=== PATIENT | female | born 1995 | race Caucasian/White ===

== ENCOUNTER → 2017-08-15 16:10 | Outpatient (CLI) | payer OTHER, SELFPAY ==
[2017-08-15 17:13] LABS: Absolute Lymphocyte Count 2.65 X10^3/ul (0.83-4.51); Absolute Neutrophil Count 5.3 X10^3/uL (2.0-7.7); Basophil# 0.02 X10^3/uL; Basophil% 0.2 % (0-1); Eosinophil# 0.05 X10^3/uL; Eosinophils% 0.6 % (0-5); Hematocrit 41.3 % (37-47); Hemoglobin 14.2 g/dl (12.0-15.0); Lymphocyte # 2.65 X10^3/ul (4.0); Lymphocyte % 30.1 % (19-41); Mean Corp Hgb Conc 34.4 g/gl (32-36); Mean Corpuscular Hgb 29.2 pg (27.0-32.0); Mean Corpuscular Volume 84.8 fL (81-99); Mean Platelet Vol. 10.7 fl (6.2-12.0); Monocyte# 0.79 X10^3/uL; Neutrophil # 5.29 X10^3/uL (2.7-7.7); Platelet Count 304 K/mm3 (150-450); RBC Distribution Width CV 11.7 % (11.6-14.6); RBC Distribution Width SD 35.8 fl (35.1-43.9); Red Blood Count 4.87 M/mm3 (4.2-5.4); White Blood Count 8.8 K/mm3 (4.4-11.0)
[2017-08-15 17:17] LABS: POSITIVE COUNT NO; POSITIVE DIFFERENTIAL NO; POSITIVE MORPHOLOGY NO
[2017-08-15 19:08] LABS: HIV - WCH Non-Reactive (Nonreactive); Rubella IgG 77.2 IU/mL
[2017-08-17 13:16] LABS: HEPATITIS B SURFACE AG Negative (Negative)
[2017-08-22 01:08] LABS: Rapid Plasmin Reagin (RPR) NONREACTIVE (NONREACTIVE)
== END ==
PROVIDERS: Family Provider Family Medicine; PCP Family Medicine; Visit Provider Obstetrics & Gynecology
DX: Z34.90 Encounter for supervision of normal pregnancy, unspecified, unspecified trimester (principal)
CPT/HCPCS: 36415; 85025; 86592; 86703; 86762; 86850; 86900; 87340

== ENCOUNTER → 2017-08-15 18:41 | Outpatient (CLI) | payer OTHER, SELFPAY ==
[2017-08-15 20:29] LABS: Chlamydia Trachomatis by PCR Negative (Negative); Neisserai gonorrhoeae by PCR Negative (Negative); Probe Check PASS; Sample Adequacy Control PASS; Specimen Processing Control PASS
== END ==
PROVIDERS: Visit Provider Obstetrics & Gynecology
DX: Z34.90 Encounter for supervision of normal pregnancy, unspecified, unspecified trimester (principal)
CPT/HCPCS: 87086; 87491; 87591

== ENCOUNTER → 2017-09-15 15:16 | Outpatient (CLI) | payer OTHER, SELFPAY | PROVIDERS: Family Provider Family Medicine; PCP Family Medicine | DX: Z36.82 Encounter for antenatal screening for nuchal translucency (principal) ==

== ENCOUNTER → 2017-11-06 18:23 | Outpatient (CLI) | payer OTHER, SELFPAY ==
--- NOTE | 2017-11-06 18:27 | US_ITS ---
STUDY: SECOND AND THIRD TRIMESTER OBSTETRICAL ULTRASOUND REASON FOR EXAM: Female, 22 years old. Anatomy scan LMP: TECHNIQUE: Transabdominal PRIOR ULTRASOUND: None. FINDINGS: There is a single intrauterine fetus. The fetus is in a breech presentation. There is demonstrated cardiac activity with a heart rate of 152 bpm. There is a normal amniotic fluid volume. The largest amniotic fluid pocket measures 5.1 cm. The placenta is posterior in location and is not low lying. There are Grade 1 placental changes. The cervix measures 37 mm in length. The adnexal regions are not visualized. BIOMETRY: BPD: 40mm: 18 weeks, 2 days HC: 170mm: 19 weeks, 5 days AC: 138mm: 19 weeks, 2 days FL: 29mm: 19 weeks, 0 days CI: 67 FL/BPD: 72 FL/HC: FL/AC: 21 HC/AC: 1.23 age by current US: 19 weeks, 1 days. ESPERANZA by current US: 10.17.18. Estimated weight: 275 grams, +/- 40 grams, 44 %. Age by LMP: 19 weeks, 1 days. ESPERANZA by LMP: ..18. ANATOMY: Gender: Female Cranium: Normal lateral ventricles. Normal choroid plexus. Normal cerebellum. Normal cisterna magna. Normal face, nose and lips. Chest: Normal 4-chamber heart . Abdomen/Pelvis: Normal diaphragm. Normal stomach. Normal abdominal wall. Normal cord insertion. Normal 3 vessel cord. Normal kidneys. Normal bladder. Spine: Normal cervical spine. Normal thoracic spine. Normal lumbar spine. Normal sacrum. Extremities: Normal bilateral upper extremities. Normal bilateral lower extremities. US/OB Anatomy Scan IMPRESSION: There is a single live intrauterine with a heart rate of 152 bpm. age by current US: 19 weeks, 1 days. ESPERANZA by current US: 10.17.18. Estimated weight: 275 grams, +/- 40 grams, 44 %. Normal anatomic survey. Electronically Signed: Chemo Stahl MD at 21:19 EDT , Service support ,
== END ==
PROVIDERS: Family Provider Family Medicine; PCP Family Medicine; Visit Provider Obstetrics & Gynecology
DX: Z36.89 Encounter for other specified antenatal screening (principal)
CPT/HCPCS: 76805

== ENCOUNTER → 2018-01-06 10:32 | Outpatient (CLI) | payer OTHER, SELFPAY ==
[2018-01-06 11:51] LABS: Absolute Lymphocyte Count 2.19 X10^3/ul (0.83-4.51); Absolute Neutrophil Count 5.8 X10^3/uL (2.0-7.7); Basophil# 0.01 X10^3/uL; Basophil% 0.1 % (0-1); Eosinophil# 0.06 X10^3/uL; Eosinophils% 0.7 % (0-5); Hematocrit 34.9 % (37-47); Hemoglobin 11.3 g/dl (12.0-15.0); Lymphocyte # 2.19 X10^3/ul (4.0); Lymphocyte % 24.8 % (19-41); Mean Corp Hgb Conc 32.4 g/gl (32-36); Mean Corpuscular Hgb 28.8 pg (27.0-32.0); Mean Platelet Vol. 10.4 fl (6.2-12.0); Monocyte# 0.72 X10^3/uL; Monocyte% 8.1 % (0-10); Neutrophil # 5.83 X10^3/uL (2.7-7.7); Platelet Count 229 K/mm3 (150-450); RBC Distribution Width SD 38.2 fl (35.1-43.9); Red Blood Count 3.92 M/mm3 (4.2-5.4); White Blood Count 8.8 K/mm3 (4.4-11.0)
[2018-01-06 11:52] LABS: POSITIVE COUNT NO; POSITIVE DIFFERENTIAL NO; POSITIVE MORPHOLOGY NO
[2018-01-06 12:21] LABS: Glucose Challenge Gest 1H 50g 118 mg/dL (70-140)
== END ==
PROVIDERS: Family Provider Family Medicine; PCP Family Medicine; Visit Provider Obstetrics & Gynecology
DX: Z34.90 Encounter for supervision of normal pregnancy, unspecified, unspecified trimester (principal)
CPT/HCPCS: 36415; 82950; 85025; 86850; 86900

== ENCOUNTER → 2018-03-05 16:19 | Outpatient (CLI) | payer OTHER, SELFPAY ==
[2018-03-05 17:51] LABS: Group B Strep DNA By PCR Negative (Negative); Internal Control PASS; Probe Check PASS; Specimen Processing Control PASS
== END ==
PROVIDERS: Family Provider Family Medicine; PCP Family Medicine; Visit Provider Nurse Practitioner Women's Health
DX: Z34.90 Encounter for supervision of normal pregnancy, unspecified, unspecified trimester (principal)
CPT/HCPCS: 87081; 87653

== ENCOUNTER 2018-04-08 07:05 | Inpatient (IN) | payer OTHER, SELFPAY ==
[2018-04-08 07:13] VITALS: BMI 27.4
[2018-04-08 08:02] LABS: Hematocrit 34.5 % (37-47); Hemoglobin 10.9 g/dl (12.0-15.0); Mean Corp Hgb Conc 31.6 g/gl (32-36); Mean Corpuscular Hgb 26.1 pg (27.0-32.0); Mean Corpuscular Volume 82.7 fL (81-99); Mean Platelet Vol. 11.3 fl (6.2-12.0); Platelet Count 201 K/mm3 (150-450); RBC Distribution Width CV 13.9 % (11.6-14.6); RBC Distribution Width SD 40.2 fl (35.1-43.9); Red Blood Count 4.17 M/mm3 (4.2-5.4); Scan Indicated on CBC? Y/N NO; White Blood Count 11.1 K/mm3 (4.4-11.0)
[2018-04-08] MEDS: Lactated Ringers 1,000 ML 50 ML IV ×4 (08:09→19:06)
[2018-04-08] MEDS: Oxytocin 30 units/NS 500 ml 30 UNITS/500 ML IV.SOLN IV (08:14)
[2018-04-08] MEDS: fentaNYL-bupivacaine (epidural) 100 ML BAG EPIDURAL (12:20)
[2018-04-08] MEDS: 0.9% Normal Saline 1,000 ML 100 ML INTRA-UTER (16:30)
[2018-04-08 21:40] VITALS: O2SAT 97
--- NOTE | 2018-04-08 21:47 | PLAC_PTH ---
PATIENT: JEFE ROMAN LOC: WP U#:[id number] AGE/SX: 22/F ROOM: WP004 RE04/08/[address]: Dr. Sangeetha Floyd MD : 1995 BED: 1 DIS: 04/10/2018 SPEC #: [id number] RECD: 04/09/18 01:37 STATUS: TUTU RENinfa #: [id number] RODRIGO: 04/08/18 21:[address]: Sangeetha Floyd DEPT: SURGICAL PATHOLOGY RECD BY: Jese Richard ENTERED: 04/09/18 11:29 SP TYPE: PLACENTA OTHR DR: Dr. Kisha Stuart, DO Tissues: Placenta, NOS Procedures: Surgery Specimen Level V HEADER OPERATION: Vaginal delivery PRE-OP DIAGNOSIS: Maternal fever TISSUE SUBMITTED: Placenta MICROSCOPIC DIAGNOSIS Placenta: Placental disc - third trimester placenta (455 gm). - Focal areas of peripheral infarction (largest measuring 5 cm in greatest dimension). - Focal acute vasculitis of subamnionic blood vessels. Membranes - pigment laden macrophages consistent with meconium staining. Umbilical cord - three blood vessels and focal mild acute funisitis. SJ:robert 04/13/18 MICROSCOPIC DESCRIPTION Slides are reviewed. GROSS DESCRIPTION SPECIMEN: PLACENTA / CLINICAL INFORMATION: A. Weight: 3.106 kg B. Gestational Age: 41 weeks C. Sex: Female PLACENTAL WEIGHT (POST FIXATION): 455 gm PLACENTAL DIMENSIONS: 19 x 16 x 3 cm PLACENTAL SHAPE: Usual ovoid PLACENTAL WEIGHT FOR GESTATIONAL AGE: Within 10-99th percentile MEMBRANES - Present A. Insertion: Marginal B. Site of rupture from edge: 4 cm from edge of placental disc C. Color of membrane: Mello-greenish, mucoidy consistent with meconium staining D. Abnormalities: None UMBILICAL CORD - Present A. Color: Mello-denson B. Insertion: Central C. Length: 26 cm D. Diameter: 1.2 cm E. Number of vessels: Three F. Abnormalities: None PLACENTAL DISC - Present A. Color of surface: Mello-denson B. surface abnormalities: None C. Maternal cotyledons: Intact with minimal tears D. Attached retro placental clot: No clot E. Cut surface: Dark red and spongy F. Lesions: Sections reveal three mello, indurated peripheral lesions. The smaller two measure 0.5 and 1.5 c in greatest dimension and the largest lesion measures 5 x 3 x 1.5 cm. G. Separate clot: Also received are multiple fragments of blood clot measuring in aggregate 12 x 8 x 2 cm and weighing 58 gm. SECTIONS SUBMITTED: 1. Membrane roll 2. Cord, maternal end, smallest lesion 3. Cord, end 4. Placental disc, and maternal surfaces, intermediate sized lesion, largest lesion 5. Placental disc, and maternal surfaces 6. Placental disc, and maternal surfaces SJ:rg 04/10/18 TC:2 CPT: 26801
[2018-04-08] MEDS: Oxytocin 30 units/NS 500 ml 30 UNITS/500 ML IV.SOLN 334 UNITS IV (21:53)
--- NOTE | 2018-04-08 22:15 | HP.PCM_ITS ---
- Problem List (1) Post-dates Status: Acute (2) Status: Acute Qualifiers: Comment: primigravid (3) screening encounter Status: Acute Comment: Optimal draw: 10/15/17-10/29/17 (4) Rh negative status during Status: Acute Qualifiers: Comment: rhogam prn and at 28 weeks (5) Supervision of normal Status: Acute Qualifiers: Comment: PRR ESPERANZA 04/01/18 kadie Michael History Date of Admission: 04/08/18 Final ESPERANZA: 04/01/18 Gestational age: 41 Weeks and 0 Days History of this : This is a 22 year-old, at 41 weeks gestational age presents IOL postdates. she has had an uncomplicated without any issues. Medical History: Medical History (Last Reviewed 04/06/18 @ 14:06 by Kait Senior) Abnormal Pap smear of cervix R87.619 Anxiety F41.9 Surgical History: Surgical History (Last Reviewed 04/06/18 @ 14:06 by Kait Senior) History of tonsillectomy Z98.890, Z90.89 Allergies No Known Allergies Allergy (Verified 04/06/18 14:05) Home Medications: Home Medications vitamin,calcium,dojshegw-xytu-mlrhe acid tablet 1 tab PO QDAY 08/15/17 breast pump See Dose Instructions .ROUTE .MEDSUPPLY #1 ea 02/25/18 Smoking Status: Never smoker Alcohol: None Number of Fetus(es): 1 Heart Tracins moderate variability reactive no decels cat I History Past Pregnancies: Past Pregnancies primigravid Delivery Date Name GA/Weeks Outcome Route Weight Infant Gender Labor Length Anesthesia Delivery Location Provider FOB Labs: Mom's Labs & Results 04/08/18 04/08/18 07:30 07:30 WBC 11.1 H RBC 4.17 L Hgb 10.9 L Hct 34.5 L MCV 82.7 MCH 26.1 L MCHC 31.6 L RDW 13.9 RDW Differential 40.2 Plt Count 201 MPV 11.3 Blood Type O NEGATIVE Antibody Screen NEGATIVE Course Did the patient receive Yes care? Labs Blood Type: O RH: NEGATIVE RPR/VDRL/Syphilis Nonreactive Rubella status Immune HbSAg Negative Date Done: 08/15/17 Chlamydia Negative Gonorrhea Negative HIV/AIDS Non-Reactive Group B Strep: Negative Current Obstetrical History Gestational Diabetes No Incompetent Cervix No Infertility No IUGR No Macrosomia No Hypertension/Pre-eclampsia No Placenta Previa/Abruption No PTL/PROM No Uterine anomaly No Oligohydramnios No Polyhydramnios No Multiple gestation No Past Medical History Asthma No Diabetes No Hypertension No Heart disease No Mitral valve prolapse No Neurologic/Seizure disorder/ No Migraines Kidney disease No Liver disease No Varicosities No Clotting disorders/Hx of DVT No Thyroid Dysfunction No Other medical diseases No Psychiatric disorders No Major trauma No Abnormal PAP smear No Sleep apnea No Mammogram in the last 2 years No Social History Marital Status: Alleged father Lorenzo Hx Smoking No Smoking Status Never smoker Expected Infant Delivery Method: Spontaneous Vaginal Review of Systems Constitutional: Denies: Fever, Malaise Eyes: Denies: Blurred vision, Vision Change HEENT: Denies: Head Aches, Visual Changes Cardiovascular: Denies: Chest Pain, Palpitations Respiratory: Denies: Cough, Shortness of Breath, Wheezing Gastrointestinal: Denies: Abdominal Pain, Diarrhea, Nausea, Vomiting Genitourinary: Denies: Dysuria, Hematuria Musculoskeletal: Denies: Joint Pain, Muscle pain Skin: Denies: Lesions, Rash Neurological: Denies: Blurred vision, Focal weakness, Headaches Psychiatric: Denies: Anxiety, Depression Endocrine: Denies: Heat/ Cold Intolerance Hematologic/ Lymphatic: Denies: Easy Bruising, Easy Bleeding Physical Exam General: Alert, Cooperative, No apparent distress HEENT: Atraumatic, Normocephalic. Negative for: Thyromegaly, Lymphadenopathy Cardiovascular: Regular rate Lungs: Normal air movement Abdomen: Soft, Non Tender, Gravid Neurological: Deep Tendon Reflexes 2+/4 and Symmetrical, Neuro grossly intact. Negative for: Clonus MAKE READY WORKER: Normal external genitalia. Negative for: Vulvar lesions Estimated gestational size: Appropriate for gestational size Presentation: Cephalic Cervix Dilation (cm): 2.5 Station: -2 Effacement (%): 70 Assessment/Plan All Active Problems (Last Reviewed 04/06/18 @ 14:06 by Kait Senior) Post-dates (Acute) (Acute) screening encounter (Acute) Rh negative status during (Acute) Supervision of normal (Acute) Subchorionic hematoma in first trimester (Resolved) This is a 22 year-old, , at 41 weeks gestational age IOL postdates Patient presents IOL, plan expectant management for with pitocin/AROM when able Pain management: plans epidural. GBS neg. Management of any complications: none I have reviewed the [facility] and made any clinically relevant updates.
--- NOTE | 2018-04-08 22:22 | OP.PCM_ITS ---
- Problem List (1) Post-dates Status: Acute (2) Status: Acute Qualifiers: Comment: primigravid (3) screening encounter Status: Acute Comment: Optimal draw: 10/15/17-10/29/17 (4) Rh negative status during Status: Acute Qualifiers: Comment: rhogam prn and at 28 weeks (5) Supervision of normal Status: Acute Qualifiers: Comment: PRR ESPERANZA 04/01/18 kadie Michael Vaginal Delivery Maternal Presentation: Medically Indicated Induction 22-year-old at 41 weeks presents for induction of labor secondary to postdates Method of Induction: Pitocin Medical Reason for Induction: Post term Amniotic Membrane Rupture Type: Artificial Amniotic Fluid Description: Moderate meconium Final ESPERANZA: 04/01/18 Gestational age: 41 Weeks and 0 Days Date of Procedure: 04/08/18 Pre-Operative Diagnosis: Induction of labor postdates Post-Operative Diagnosis: Same plus isolated maternal fever Surgery/ Procedure Performed: Spontaneous Vaginal Delivery Type of Anesthesia: Epidural Description of Procedure: Patient was induced starting with Pitocin, artificial rupture membranes, and proceeded to complete dilation. Immediately prior to beginning pushing patient had to elevated temperatures of 100.9 half an hour apart and the patient was given a dose of IV ampicillin and gentamicin however upon review of the newest protocol she did not meet the criteria for a true triple I, only a documented isolated maternal fever. This was discussed with poultry culler and the patient and therefore additional antibiotics were not indicated at this time unless there are additional clinical findings present. Patient began pushing and delivered the head in the MEGHAN presentation. The head was delivered atraumatically. The anterior and posterior shoulders delivered without complication followed by the rest of the and the infant was placed on the maternal abdomen. Delayed cord clamping was employed for approximately 60 seconds. Cord was clamped and cut and gentle traction was applied to the cord and the placenta delivered spontaneously immediately following it was noted to be intact with three-vessel cord. The perineum and vagina were inspected and noted to have a second-degree perineal laceration that was repaired in the usual fashion with 3-0 Vicryl repeat. EBL was 100 cc. Patient and tolerated delivery well. Presentation: MEGHAN
[2018-04-08] MEDS: Oxytocin 30 units/NS 500 ml 30 UNITS/500 ML IV.SOLN 167 UNITS IV (22:23)
--- NOTE | 2018-04-08 22:31 | DCINST_ITS ---
Discharge Diet: No Restrictions Discharge Activity: Return to Normal Activity, May not drive while taking narcotic pain medications., May Shower May resume sexual activity in: 4-6 weeks Call your doctor if your incision/area has: Continuous Slow Oozing, Sudden Increased Bleeding, Increased Pain/ Swelling, Increased Redness, Foul Smelling Discharge Additional Instructions: If you experience any of the following, contact your healthcare provider. * Bleeding that soaks a pad every hour for 2 hours * Fever 100.4 or higher * Unrelieved incision or abdominal pain * Swelling, redness, discharge or bleeding from your incision or episiotomy site * Your incision begins to separate * Problems urinating (including inability to urinate or burning while urinating). * Visual changes * Severe headache * Flu-like symptoms * Pain or redness in one of both of your breasts * Pain, warmth, tenderness or swelling in your legs, especially the calf area * Frequent nausea and vomiting * Symptoms of depression or anxiety If you experience any of the following, call 911 or go to the nearest Emergency Room. * Chest pain * Problems breathing * Seizure activity * Partial or complete paralysis of a body part, slurred speech, weakness or drooping of the face, or a sudden inability to walk or hold your balance Allergies/Adverse Reactions: Allergies No Known Allergies Allergy (Verified 04/06/18 14:05) Medications to take at Discharge vitamin,calcium,kajwptuy-gmwq-ffdcb acid tablet 1 tab PO QDAY 08/15/17 breast pump See Dose Instructions .ROUTE .MEDSUPPLY #1 ea 02/25/18 Naproxen [Naprosyn] 250 - 500 mg PO Q8H PRN PRN #30 tablet 04/08/18 The following prescriptions were given: Naproxen [Naprosyn] 250 - 500 mg PO Q8H PRN PRN #30 tablet PRN Reason: MILD PAIN Please Follow Up With: Sangeetha Floyd MD - [phone] When: Call to make an appointment with your doctor in 6 weeks. If you had elevated Blood pressure or 4th degree laceration you will need to be seen in 2 weeks. Primary Care Physician: Kisha Stuart DO [Primary Care Provider] - Test Results: Test results from this visit will be discussed in further detail at your follow- up appointment, if applicable.
--- NOTE | 2018-04-08 22:31 | PCM.DCVAG ---
Discharge Diet: No Restrictions Discharge Activity: Return to Normal Activity, May not drive while taking narcotic pain medications., May Shower May resume sexual activity in: 4-6 weeks Call your doctor if your incision/area has: Continuous Slow Oozing, Sudden Increased Bleeding, Increased Pain/ Swelling, Increased Redness, Foul Smelling Discharge Additional Instructions: If you experience any of the following, contact your healthcare provider. Bleeding that soaks a pad every hour for 2 hours Fever 100.4 or higher Unrelieved incision or abdominal pain Swelling, redness, discharge or bleeding from your incision or episiotomy site Your incision begins to separate Problems urinating (including inability to urinate or burning while urinating). Visual changes Severe headache Flu-like symptoms Pain or redness in one of both of your breasts Pain, warmth, tenderness or swelling in your legs, especially the calf area Frequent nausea and vomiting Symptoms of depression or anxiety If you experience any of the following, call 911 or go to the nearest Emergency Room. Chest pain Problems breathing Seizure activity Partial or complete paralysis of a body part, slurred speech, weakness or drooping of the face, or a sudden inability to walk or hold your balance Allergies/Adverse Reactions: Allergies No Known Allergies Allergy (Verified 04/06/18 14:05) Medications to take at Discharge vitamin,calcium,hmetiudq-inrd-utwpx acid tablet 1 tab PO QDAY 08/15/17 breast pump See Dose Instructions .ROUTE .MEDSUPPLY #1 ea 02/25/18 Naproxen [Naprosyn] 250 - 500 mg PO Q8H PRN PRN #30 tablet 04/08/18 The following prescriptions were given: Naproxen [Naprosyn] 250 - 500 mg PO Q8H PRN PRN #30 tablet PRN Reason: MILD PAIN Please Follow Up With: Sangeetha Floyd MD - [phone] When: Call to make an appointment with your doctor in 6 weeks. If you had elevated Blood pressure or 4th degree laceration you will need to be seen in 2 weeks. Primary Care Physician: Kisha Stuart DO [Primary Care Provider] - Test Results: Test results from this visit will be discussed in further detail at your follow-up appointment, if applicable.
[2018-04-09] MEDS: 0.9% Saline Lock 10 ML Syringe IV (00:16)
[2018-04-09] MEDS: Naproxen 250 MG Tablet 500 MG PO ×4 (00:24→20:34)
[2018-04-09 02:00] VITALS: TEMP 37.1
--- NOTE | 2018-04-09 02:05 | NURSING ---
epidural cath d/c'd with blue tip intact
[2018-04-09 04:36] VITALS: BP 111/64; PULSE 97; RESP 16; TEMP 36.8; O2SAT 96
[2018-04-09 08:30] VITALS: BP 128/57; PULSE 98; RESP 16; TEMP 36.8; O2SAT 97
[2018-04-09] MEDS: Acetaminophen 500 MG Tablet PO (08:34)
[2018-04-09 11:49] VITALS: BP 103/68; PULSE 88; RESP 14; TEMP 37; O2SAT 98
[2018-04-09] MEDS: Senna/Docusate Sodium 1 Tablet PO (13:45)
[2018-04-09 16:30] VITALS: BP 134/96; PULSE 75; RESP 16; TEMP 36.6; O2SAT 98
[2018-04-09 20:40] VITALS: BP 117/86; PULSE 78; RESP 18; TEMP 36.9
--- NOTE | 2018-04-09 21:14 | PCM.PN.OB ---
Patient Problems: Active and Suspected Problems (Last Reviewed 04/06/18 @ 14:06 by Kait Senior) Post-dates (Acute) Subjective: doing well n ocomplaints - Physical Exam General: Alert, Oriented x3 Vital Signs Temp Pulse Resp BP Pulse Ox 98 F 75 16 134/96 H 98 04/09/18 16:30 04/09/18 16:30 04/09/18 16:30 04/09/18 16:30 04/09/18 16:30 Oxygen Delivery Method Room Air Weight: 154 lb 14.4 oz Body Mass Index (BMI) 27.4 Intake and Output for Last 24 Hours 04/07/18 04/08/18 04/09/18 23:59 23:59 23:59 Intake Total 3994 / 3994 454 / 454 Output Total 2200 / 2200 2100 / 2100 Balance 1794 / 1794 -1646 / -1646 Laboratory Tests Past 24 Hrs 04/09/18 00:14 Screen NEGATIVE Baby's Blood Type A POSITIVE Baby's TESHA NEGATIVE Medical Necessity - Tobacco Use Smoking Status: Never smoker Assessment/Plan All Active Problems (Last Reviewed 04/06/18 @ 14:06 by Kait Senior) Post-dates (Acute) (Acute) screening encounter (Acute) Rh negative status during (Acute) Supervision of normal (Acute) Subchorionic hematoma in first trimester (Resolved) s/p PPD # 1 1. routine post delivery care 2. breast feeding- support given 3. rh negative 4. rubella immune
[2018-04-10] MEDS: Acetaminophen 500 MG Tablet PO (01:11)
[2018-04-10] MEDS: Dibucaine 30 GM Tube 1 APPLIC TOPICAL (01:20)
[2018-04-10 01:40] VITALS: BP 117/81; PULSE 78; RESP 16; TEMP 37.1
[2018-04-10 08:23] VITALS: BP 116/78; PULSE 94; RESP 16; TEMP 36.5
[2018-04-10 12:44] VITALS: BP 119/87; PULSE 100; RESP 16; TEMP 36.8; O2SAT 97
[2018-04-13 16:01] LABS: Pathology Specimen OB SEE PATHOLOGY REPORT
== END 2018-04-10 13:05 | disposition home or self-care (01) | DRG 806 ==
PROVIDERS: Admitting Provider Obstetrics & Gynecology; Family Provider Family Medicine; PCP Family Medicine; Visit Provider Obstetrics & Gynecology
DX: O48.0 Post-term pregnancy (principal); O75.2 Pyrexia during labor, not elsewhere classified; Z37.0 Single live birth; O36.0130 Maternal care for anti-D [Rh] antibodies, third trimester, not applicable or unspecified; O77.0 Labor and delivery complicated by meconium in amniotic fluid; O70.1 Second degree perineal laceration during delivery; O43.893 Other placental disorders, third trimester; Z3A.41 41 weeks gestation of pregnancy
CPT/HCPCS: 59050; 85027; 85461; 86850; 86900; 88307; 90384; 99218; J7030; J7120; 90686; A4216; G0378; J2790

== ENCOUNTER → 2018-04-17 14:17 | Outpatient (CLI) | payer OTHER, SELFPAY | PROVIDERS: Family Provider Family Medicine; PCP Family Medicine; Visit Provider Family Medicine | DX: R30.0 Dysuria (principal) | CPT/HCPCS: 87086; 87088 ==

== ENCOUNTER 2018-06-04 11:00 | Outpatient (RCR) | payer OTHER, SELFPAY ==
--- NOTE | 2017-09-11 18:54 | MASS.EVAL_ITS ---
Massage Therapy Evaluation: Initial Evaluation Date: 09/11/2017 SUBJECTIVE: Leyda is a 22 year old female who was referred to the [facility] facility for a massotherapy evaluation by Dr. Kisha Stuart with the diagnosis of low back pain and thoracic pain. Leyda presents today with the symptoms of low back pain with muscle tension in her low back and hips. She also complains of tension and pain in her neck shoulders and middle back. She reports having a medical history of neck and back pain. She is currently approximately ten weeks . She reports having minimal limitations during her daily activities currently. OBJECTIVE: Upon observation Leyda has poor posture with her head forward and shoulders forward from the neutral position in sitting and standing. After examination and palpation I found Leyda to have very high muscle tension with tenderness and myofascial restrictions in her sub occipitals, trapezius, rhomboids, scalenes, thoracic paraspinals and pectoral muscles. Her hips and lumbar region were also tight. The first treatment consisted of a one hour massage to her full body with myofascial release, muscle stripping, trigger point compression techniques, and cervical manual traction. ASSESSMENT: I feel that Leyda is a good candidate for massotherapy at this time. She had a favorable response to the first treatment with reduction in her muscle aches, pain and tension. She also had improvement in her cervical flexibility. PLAN: The plan of care was reviewed with the patient. The patient is to be seen on as needed basis for a total of ten sessions with the recommendation of once every four weeks for a one hour treatment.
--- NOTE | 2017-11-20 11:30 | DT_ITS ---
This patient was seen during an EMR downtime November 17, 2017 - November 24, 2017. This patient may have a combination of paper and electronic documentation or all paper documentation. All documentation is viewable within the e-chart portion of [facility] for each patient visit.
--- NOTE | 2018-06-06 15:09 | MASS.DISCH ---
Massage Therapy Discharge Summary: Discharge Date: 06/06/2018 Leyda was seen for a massotherapy evaluation on 09/11/2017 with the diagnosis of LBP and thoracic spine pain. She was treated with ten sessions of massage therapy consisting of deep pressure soft tissue techniques, myofascial release and trigger point compression to her cervical, thoracic, lower back, upper extremities and hips. Leyda responded well to the therapy by reporting decreased tension and pain throughout her head, neck, shoulders, lower back and hips. Her goals for therapy were met throughout the treatment sessions. At this time this patient is being discharged from our care at [facility] facility.
== END 2018-06-04 19:00 | disposition home or self-care (01) ==
LOC: MASS 11:00
PROVIDERS: Family Provider Family Medicine; PCP Family Medicine; Visit Provider Family Medicine
DX: M54.6 Pain in thoracic spine (principal); M54.5 Low back pain
CPT/HCPCS: 97124

== ENCOUNTER 2018-12-10 08:15 | Outpatient (RCR) | payer OTHER, SELFPAY ==
[2018-05-25 11:46] VITALS: BMI 24.0
--- NOTE | 2018-07-08 10:40 | MASS.EVAL ---
Massage Therapy Evaluation: Initial Evaluation Date: 07/07/2018 SUBJECTIVE: Leyda is a 23 year old female who was referred to the [facility] for a massotherapy evaluation by Dr. Stuart with the diagnosis of thoracic back pain. Leyda presents today with the symptoms of tension and pain in her neck and shoulders. She also complains of neck and back stiffness with pain intermittently in her low back and bilateral hip tension. Leyda reports that she delivered her baby three months ago and is adjusting to caring for her very well. She reports having improved symptoms with continuation of exercise and stretching. OBJECTIVE: Upon observation Leyda has slight head forward in sitting and standing postures. After examination and palpation I found Leyda to have high muscle tension with tenderness and myofascial restrictions in her sub occipitals, levator scapulae, trapezius, rhomboids, scalenes, and thoracic paraspinals. Her QL?s, lumbar paraspinals, glute medius and minimus all were very tight with fascial restrictions, tender points and trigger points. The first treatment consisted of a one hour massage to her upper body with myofascial release, muscle stripping, trigger point compression techniques, and cervical manual traction. ASSESSMENT: I feel that Leyda is a good candidate for massotherapy at this time. She had a favorable response to the first treatment with reduction in her muscle aches, pain and tension. She also had improvement in her cervical flexibility and low back flexibility. PLAN: The plan of care was reviewed with the patient. The patient is to be seen on an as needed basis for a total of ten sessions with the recommendation of once every month for a one hour treatment.
--- NOTE | 2019-06-03 13:36 | MASS.DISCH ---
Massage Therapy Discharge Summary: Discharge Date: 06/03/2019 Leyda was seen for a massotherapy evaluation on 07/07/2018 with the diagnosis of thoracic back pain. She was treated with six sessions of massage therapy consisting of moderate to deep pressure soft tissue techniques, myofascial release and trigger point compression to her cervical, thoracic, lower back and upper extremities. Leyda responded well to the therapy by reporting decreased tension and pain throughout her head, neck, shoulders, lower back and hips. Her goals for therapy were met throughout the treatment sessions. At this time this patient is being discharged from our care at [facility] facility.
== END 2018-12-10 19:00 | disposition home or self-care (01) ==
LOC: MASS 08:15
PROVIDERS: Family Provider Family Medicine; PCP Family Medicine; Referring Provider Family Medicine; Visit Provider Family Medicine
DX: M54.6 Pain in thoracic spine (principal)
CPT/HCPCS: 97124

== ENCOUNTER → 2019-05-27 12:33 | Outpatient (CLI) | payer SELFPAY ==
[2019-05-27 12:22] VITALS: BMI 24.0
[2019-05-27 13:26] LABS: Absolute Lymphocyte Count 1.65 X10^3/uL (0.83-4.51); Absolute Neutrophil Count 3.4 X10^3/uL (2.0-7.7); Basophil# 0.02 X10^3/uL; Basophil% 0.3 % (0-1); Eosinophil# 0.02 X10^3/uL; Eosinophils% 0.3 % (0-5); Hematocrit 45.4 % (37-47); Hemoglobin 14.9 g/dL (12.0-15.0); Lymphocyte # 1.65 X10^3/ul (4.0); Lymphocyte % 28.2 % (19-41); Mean Corp Hgb Conc 32.8 g/dL (32-36); Mean Corpuscular Hgb 28.4 pg (27.0-32.0); Mean Corpuscular Volume 86.5 fL (81-99); Mean Platelet Vol. 10.3 fl (6.2-12.0); Monocyte# 0.78 X10^3/uL; Monocyte% 13.3 % (0-10); NRBC Flagged by Analyzer 0 % (0-5); Neutrophil # 3.36 X10^3/uL (2.7-7.7); Neutrophil % 57.6 % (47-70); Platelet Count 253 K/mm3 (150-450); RBC Distribution Width CV 11.9 % (11.6-14.6); Red Blood Count 5.25 M/mm3 (4.2-5.4); White Blood Count 5.9 K/mm3 (4.4-11.0)
[2019-05-27 14:40] LABS: HIV - WCH Non-Reactive (Nonreactive); Hepatitis B Surface Antigen Non-Reactive (Nonreactive); Rubella IgG 69.3 IU/mL
[2019-05-27 21:27] LABS: Chlamydia Trachomatis by PCR Negative (Negative); Neisserai gonorrhoeae by PCR Negative (Negative); Probe Check PASS; Sample Adequacy Control PASS; Specimen Processing Control PASS
[2019-06-03 02:17] LABS: Rapid Plasmin Reagin (RPR) NONREACTIVE (NONREACTIVE)
== END ==
PROVIDERS: Family Provider Family Medicine; PCP Family Medicine; Referring Provider Obstetrics & Gynecology; Visit Provider Obstetrics & Gynecology
DX: Z34.90 Encounter for supervision of normal pregnancy, unspecified, unspecified trimester (principal); Z12.4 Encounter for screening for malignant neoplasm of cervix
CPT/HCPCS: 36415; 85025; 86592; 86703; 86762; 86850; 86900; 86901; 87086; 87088; 87340; 87491; 87591

== ENCOUNTER → 2019-07-12 | Outpatient (CLI) | payer SELFPAY ==
[2019-07-12 13:31] VITALS: BMI 24.0
[2019-07-12 14:59] LABS: Amphetamine Urine VISTA NEGATIVE (<1000 ng/mL); Barbiturate Urine VISTA NEGATIVE (< 200 ng/mL); Benzodiazepine Urine VISTA NEGATIVE (< 200 ng/mL); Cocaine Urine VISTA NEGATIVE (< 300 ng/mL); Ecstacy Urine VISTA NEGATIVE (< 500 ng/mL); Methadone Urine VISTA NEGATIVE (< 300 ng/mL); PCP Urine VISTA NEGATIVE (< 25 ng/mL); THC Urine VISTA NEGATIVE (< 50 ng/mL); Vista UDS pH Range 5
== END | disposition home or self-care (01) ==
LOC: LABSPEC 14:18
PROVIDERS: PCP Family Medicine; Visit Provider Nurse Practitioner Women's Health
DX: Z34.90 Encounter for supervision of normal pregnancy, unspecified, unspecified trimester (principal)
CPT/HCPCS: 80307

== ENCOUNTER → 2019-08-23 07:57 | Outpatient (CLI) | payer SELFPAY ==
[2019-08-09 13:20] VITALS: BMI 24.0
--- NOTE | 2019-08-23 08:06 | US_ITS ---
STUDY: SECOND AND THIRD TRIMESTER OBSTETRICAL ULTRASOUND REASON FOR EXAM: Female, 24 years old ANATOMY LMP: 04/11/2019 TECHNIQUE: Transabdominal TECHNICAL QUALITY: Adequate. PRIOR ULTRASOUND: None. FINDINGS: There is a single intrauterine fetus. The fetus is in a transverse lie with the head on the maternal right side. There is demonstrated cardiac activity with a heart rate of 140 bpm. There is a normal amniotic fluid volume. The largest amniotic fluid pocket measures 6.9 cm. The amniotic fluid index (TOM) is cm. The placenta is anterior in location and is not low lying. There are Grade 0 placental changes. The cervix measures 4.1 cm in length. The bilateral adnexal regions are normal. BIOMETRY: BPD: 4.0 cm: 18 weeks, 0 days HC: 15.7 cm: 18 weeks, 4 days AC: 13.2 cm: 18 weeks, 5 days FL: 2.7 cm: weeks, 1 days CI: 71.81 FL/BPD: 67.18 FL/HC: 17.10 FL/AC: 20.28 HC/AC: 1.19 age by current US: 18 weeks, 3 days. ESPERANZA by current US: 01/21/2020. Estimated weight: 242 grams, +/- 36 grams, %. Age by LMP: 19 weeks, 1 days. ESPERANZA by LMP: . ANATOMY: Gender: Male Cranium: Normal lateral ventricles. Normal choroid plexus. Normal cerebellum. Normal cisterna magna. Normal face, nose and lips. Chest: Normal 4-chamber heart. Abdomen/Pelvis: Normal diaphragm. Normal stomach. Normal abdominal wall. Normal cord insertion. Normal 3 vessel cord. Normal kidneys. Normal bladder. Spine: Normal cervical spine. Normal thoracic spine. Normal lumbar spine. Normal sacrum. Extremities: Normal bilateral upper extremities. Normal bilateral lower extremities. US/OB Anatomy Scan IMPRESSION: Living intrauterine of 18 weeks 3 days as described above. Electronically Signed: Jese Ovalle MD at 16:42 EDT Tel , Service support ,
== END ==
PROVIDERS: PCP Family Medicine; Referring Provider Obstetrics & Gynecology; Visit Provider Obstetrics & Gynecology
DX: Z34.90 Encounter for supervision of normal pregnancy, unspecified, unspecified trimester (principal)
CPT/HCPCS: 76805

== ENCOUNTER → 2019-11-03 12:44 | Outpatient (CLI) | payer SELFPAY ==
[2019-11-03 11:49] VITALS: BMI 24.0
[2019-11-03 13:40] LABS: Absolute Lymphocyte Count 2.17 X10^3/uL (0.83-4.51); Absolute Neutrophil Count 6.4 X10^3/uL (2.0-7.7); Basophil# 0.03 X10^3/uL; Basophil% 0.3 % (0-1); Eosinophil# 0.05 X10^3/uL; Eosinophils% 0.5 % (0-5); Hemoglobin 11.1 g/dL (12.0-15.0); Lymphocyte # 2.17 X10^3/ul (4.0); Lymphocyte % 22.9 % (19-41); Mean Corp Hgb Conc 30.8 g/dL (32-36); Mean Corpuscular Hgb 27.1 pg (27.0-32.0); Mean Corpuscular Volume 87.8 fL (81-99); Mean Platelet Vol. 10.4 fl (6.2-12.0); Monocyte# 0.73 X10^3/uL; Monocyte% 7.7 % (0-10); NRBC Flagged by Analyzer 0 % (0-5); Neutrophil # 6.42 X10^3/uL (2.7-7.7); Platelet Count 237 K/mm3 (150-450); RBC Distribution Width CV 12.1 % (11.6-14.6); RBC Distribution Width SD 38.7 fl (35.1-43.9); White Blood Count 9.5 K/mm3 (4.4-11.0)
[2019-11-03 14:05] LABS: Glucose Challenge Gest 1H 50g 101 mg/dL (70-140)
[2019-11-03 14:41] LABS: Hepatitis C Antibody Non-Reactive (Nonreactive)
== END ==
PROVIDERS: PCP Family Medicine; Referring Provider Obstetrics & Gynecology; Visit Provider Obstetrics & Gynecology
DX: Z34.90 Encounter for supervision of normal pregnancy, unspecified, unspecified trimester (principal); Z3A.29 29 weeks gestation of pregnancy
CPT/HCPCS: 36415; 82950; 85025; 86803; 86850; 86900; 86901

== ENCOUNTER → 2019-12-27 | Outpatient (CLI) | payer SELFPAY ==
[2019-12-27 13:22] VITALS: BMI 26.1
== END | disposition home or self-care (01) ==
LOC: LABSPEC 16:58
PROVIDERS: PCP Family Medicine; Referring Provider Obstetrics & Gynecology; Visit Provider Obstetrics & Gynecology
DX: Z34.93 Encounter for supervision of normal pregnancy, unspecified, third trimester (principal)
CPT/HCPCS: 87081

== ENCOUNTER → 2020-01-03 14:06 | Outpatient (CLI) | payer SELFPAY ==
[2020-01-03 13:34] VITALS: BMI 26.1
--- NOTE | 2020-01-03 14:06 | US_ITS ---
STUDY: SECOND AND THIRD TRIMESTER OBSTETRICAL ULTRASOUND-Limited REASON FOR EXAM: Female, 24 years old growth- small for dates LMP: 04/11/2019 TECHNIQUE: Transabdominal TECHNICAL QUALITY: Adequate. PRIOR ULTRASOUND: None. FINDINGS: There is a single intrauterine fetus. The fetus is in a cephalic presentation. There is demonstrated cardiac activity with a heart rate of 153 bpm. There is a normal amniotic fluid volume. The largest amniotic fluid pocket measures 4.2 cm. The amniotic fluid index (TOM) is 10.8 cm. The placenta is anterior in location and is not low lying. There are Grade 2 placental changes. The cervix measures 2.9 cm in length. The adnexal regions are not visualized. BIOMETRY: BPD: 9.0 cm: 36 weeks, 4 days HC: 32.6 cm: 36 weeks, 6 days AC: 32.1 cm: 36 weeks, 0 days FL: 7.2 cm: 37 weeks, 0 days age by current US: 36 weeks, 2 days. ESPERANZA by current US: 01/29/2020. Estimated weight: 2948 grams, +/- 436 grams, 21 %. age by prior US: 37 weeks, 3 days. ESPERANZA by prior US: 01/21/2020. Age by LMP: 38 weeks, 1 days. ESPERANZA by LMP: 02/02. US/OB Limited With Biometrics IMPRESSION: Single live intrauterine at 36 weeks, 2 days by current ultrasound ESPERANZA of 01/29/2020. Heart rate of 153 bpm. No suspicious sonographic findings. However, the ESPERANZA on today''s study is 8 days later than on the previous study. Electronically Signed: Kelvin Herrera MD at 8:43 EDT , Service support ,
== END ==
PROVIDERS: PCP Family Medicine; Referring Provider Obstetrics & Gynecology; Visit Provider Obstetrics & Gynecology
DX: Z34.90 Encounter for supervision of normal pregnancy, unspecified, unspecified trimester (principal)
CPT/HCPCS: 76816

== ENCOUNTER → 2020-01-17 11:38 | Outpatient (CLI) | payer SELFPAY ==
[2020-01-17 09:48] VITALS: BMI 26.1
== END ==
PROVIDERS: PCP Family Medicine; Referring Provider Obstetrics & Gynecology; Visit Provider Obstetrics & Gynecology
DX: Z20.828 Contact with and (suspected) exposure to other viral communicable diseases (principal)
CPT/HCPCS: 87635; 94799; U0003

== ENCOUNTER 2020-01-19 04:40 | Inpatient (IN) | payer SELFPAY ==
[2019-07-12 13:31] VITALS: BMI 24.0
[2020-01-17 09:48] VITALS: BMI 26.1
[2020-01-19] VITALS (45 sets, daily range): BP systolic 91–195; BP diastolic 55–122; PULSE 81–130; RESP 16; TEMP 36.2–37.3; O2SAT 98–100; BMI 26.9
[2020-01-19] MEDS: Lactated Ringers 500 ML 999 ML IV ×2 (05:24→07:14)
[2020-01-19 05:36] LABS: Absolute Lymphocyte Count 3.26 X10^3/uL (0.83-4.51); Absolute Neutrophil Count 6.2 X10^3/uL (2.0-7.7); Basophil# 0.02 X10^3/uL; Basophil% 0.2 % (0-1); Eosinophil# 0.04 X10^3/uL; Eosinophils% 0.4 % (0-5); Hematocrit 34.6 % (37-47); Hemoglobin 10.9 g/dL (12.0-15.0); Lymphocyte # 3.26 X10^3/ul (4.0); Mean Corp Hgb Conc 31.5 g/dL (32-36); Mean Corpuscular Hgb 25.3 pg (27.0-32.0); Mean Corpuscular Volume 80.5 fL (81-99); Mean Platelet Vol. 10.7 fl (6.2-12.0); Monocyte# 0.96 X10^3/uL; Monocyte% 9.1 % (0-10); NRBC Flagged by Analyzer 0 % (0-5); Neutrophil # 6.18 X10^3/uL (2.7-7.7); Neutrophil % 58.7 % (47-70); Platelet Count 216 K/mm3 (150-450); RBC Distribution Width CV 14.7 % (11.6-14.6); RBC Distribution Width SD 41.8 fl (35.1-43.9); White Blood Count 10.5 K/mm3 (4.4-11.0)
[2020-01-19] MEDS: Lactated Ringers 1,000 ML 200 ML IV ×2 (05:55→11:32)
--- NOTE | 2020-01-19 06:11 | HP.PCM_ITS ---
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 Date Name GA/Weeks Outcome Route Bth Weight Gen Labor Lgth Anesthesia Del Locatn Provider FOB 04/08/18 Camdyn 41 live - full term NS VD Female epidural [facility] HPI est ob 40w: Details: JEFE ROMAN is a 24 year old G2, P1 at 40 weeks 3 days presents in active labor 4 cm dilated. Patient has been having regular contractions since early this morning. She has had an uncomplicated without any issues. She denies any loss of fluid or vaginal bleeding she admits good movement. OB Visit ESPERANZA Calculator Estimated Delivery Date Method Current WG Current Estimate 01/16/20 LMP (Certain) 40w 2d Expected Delivery Route/Plan Labor Preferences- labor support person: Michael pain management options preferred: epidural cut cord/dad catch: yes : yes PP control planned: pill progestin discussed possible routes of delivery and associated risks: discussed possible delivery modalities and possible indications for each including R/B/A of , VAVD, and CS. questions answered. special requests: none Specific Issue/Plans flu vaccine: given tdap vaccine: given rhogam: given LARC form signed: yes movement and labor precautions reviewed. Problem list reviewed and updated with the most current plan of care details and appropriate orders placed. Relevant counseling for the gestational age provided. Continue routine care and follow up unless otherwise noted in visit notes/problem list details Initial Weight: 123 lb Date EGA Weight BP Urine Prot Glucose FHR FuHt Pres Dilation Effaced St Visit Note 06/14/19 9w 1d 123 lb 2 oz (+2 oz) 107/63 Negative Negative 150 SM- no vb crmaping, subchorionic hemorrhage resolving 07/12/19 13w 1d 127 lb 4 oz (+4 lb 4 oz) 100/60 Negative Negative 162 MH-No Vb, LOF. Taking unisom for nausea, helpful. 08/09/19 17w 1d 131 lb (+8 lb) 94/62 Negative Negative 154 MH-nausea improved. No VB, LOF. Placed MFM US order 09/06/19 21w 1d 133 lb 6 oz (+10 lb 6 oz) 100/64 Negative Negative 145 SM- no vb lof good fm no regular ctx 11/03/19 29w 3d 142 lb (+19 lb) 102/80 Negative Negative 140 30 Sm- no vb lof good fm no regular ctx cbc gct rhogam tdap 11/16/19 31w 2d 145 lb 6 oz (+22 lb 6 oz) 104/70 Negative Negative 148 32 MH-NO VB, LOF. Good FM 11/29/19 33w 1d 147 lb 6 oz (+24 lb 6 oz) 108/78 Negative Negative 140 33 Transverse SM- no vb lof good fm n oregular ctx 12/13/19 35w 1d 151 lb 2 oz (+28 lb 2 oz) 102/80 Negative Negative 140 35 Cephalic SM- no vb lof good fm no regular ctx 12/27/19 37w 1d 149 lb (+26 lb) 96/60 Negative Negative 140 37 Cephalic 1.5 40 -3 Sm- no vb lof good fm no regular ctx 01/03/20 38w 1d 153 lb (+30 lb) 108/60 Negative Negative 140 34 Cephalic 1.5 40 -2 SM- no vb lof good fm no regular ctx FH low recommend US today, 01/10/20 39w 1d 155 lb (+32 lb) 118/82 Negative Negative 140 37 Cephalic 1.5 SM- reviewed nl growth scan. no vb lof good fm no regular ctx 01/17/20 40w 1d 124/86 Negative Negative 140 39 Cephalic 2 40 -2 SM- no vb lof good fm no regular ctx. discussed IOL possibly once cervix favorable ACOG First Trimester First Trimester: Desire for , Alcohol, Tobacco Cessation, Illicit/Recreational Drug/Substance Use, Intimate Partner Violence, Barriers to care, Unstable Housing, Communication Barriers, Environmental/Work Hazards, Anticipated Course of Care, Toxoplasmosis Precations, Use of Any medications, Sexual activity, Exercise, Dental Care, Sauna/Hot tub use, Seat Belt use, Childbirth classes/Hospital facilities, , Travel, Indications for US and Screening for Aneuploidy Second Trimester Second Trimester: Signs and Symptoms of Labor, Selecting a care provider, Reproductive Life Planning, Care Planning, Tobacco Cessation, Depression/Anxiety and Intimate Partner Violence Diagnostics Diagnostics Diagnostics Blood Type O NEGATIVE 11/03/19 Antibody Screen NEGATIVE 11/03/19 Glucose 1 Hr 50 gm 101 mg/dL (70-140) 11/03/19 Hgb 11.1 g/dL (12.0-15.0) L 11/03/19 Hct 36.0 % (37-47) L 11/03/19 Details: HIV: Urine Culture: Sequential Screen: NIPT Screen: ROS Const Reports system reviewed and no additional complaints, except as docu Card Reports system reviewed and no additional complaints, except as docu Resp Reports system reviewed and no additional complaints, except as docu GI Reports system reviewed and no additional complaints, except as docu, Reports nausea Reports system reviewed and no additional complaints, except as docu Musc Reports system reviewed and no additional complaints, except as docu Exam Const General: cooperative, healthy appearing, comfortable, anxious HENMT Head: normal to inspection Nose: external nose normal Face and sinus: normal facial exam Neck Neck: normal visual inspection, full ROM, no lymphadenopathy Thyroid: thyroid normal Chest Chest palpation & inspection: normal inspection of the chest Resp Effort & Inspection: normal respiratory effort GI Inspection: normal to inspection Palpation: soft, other (gravid uterus) Other: infant vertex and appropriate size for gestational age Other: Cervical Exam: Extrem General: pedal edema Results POC Urinalysis 2 Dip (Clinic) Office Urine Glucose Negative Last Edit by Rachel Iverson on 01/17/20 09:5 2 Office Urine Protein Negative Last Edit by Rachel Iverson on 01/17/20 09:5 2 Assessment & Plan Problems 1. Rh negative status during O26.899; Z67.91 rhogam given at 28 weeks 2. Supervision of normal Z34. PRR ESPERANZA 01/16/20 boy PC [place] Michael 3. Z34.90 carrier, ntd, nipt declined; normal anatomy Patient presents IAL, plan expectant management for , Pitocin/AROM if needed. Pain management: Plans epidural. GBS negative. Management of any complications: None I have reviewed the [facility] and made any clinically relevant updates. Orders Orders: POC Urinalysis 2 Dip (Clinic) 01/17/20 Coding Level of Care Code OB Routine Diagnoses Rh negative status during O26.899; Z67.91 Supervision of normal Z34 [id number]
[2020-01-19] MEDS: fentaNYL-bupivacaine (epidural) 100 ML BAG EPIDURAL (06:51)
[2020-01-19] MEDS: Oxytocin 30 units/NS 500 ml 30 UNITS/500 ML IV.SOLN IV (10:45)
[2020-01-19] MEDS: Oxytocin 30 units/NS 500 ml 30 UNITS/500 ML IV.SOLN 334 UNITS IV (13:05)
--- NOTE | 2020-01-19 14:15 | OP.PCM_ITS ---
Problem List (1) Status: Acute Qualifiers: Comment: carrier, ntd, nipt declined; normal anatomy (2) Rh negative status during Status: Acute Qualifiers: Comment: rhogam given at 28 weeks (3) Supervision of normal Status: Acute Qualifiers: Comment: PRR ESPERANZA 01/16/20 boy PC [place] Michael (4) Active labor at term Status: Acute Vaginal Delivery Maternal Presentation: Active Labor A 24-year-old G2, P1 at 40 weeks 3 days presents in active labor Amniotic Membrane Rupture Type: Artificial Amniotic Fluid Description: Clear Final ESPERANZA: 01/16/20 Gestational age: 40 Weeks and 3 Days Date of Procedure: 01/19/20 Pre-Operative Diagnosis: ial Post-Operative Diagnosis: same Surgery/ Procedure Performed: Spontaneous Vaginal Delivery Type of Anesthesia: Epidural, Local with 1% lidocaine Description of Procedure: Patient began pushing and delivered the head in the LUIS CARLOS presentation. The head was delivered atraumatically [and a loose nuchal cord ?1 was identified and easily reduced over the infant's head]. The anterior and posterior shoulders delivered without complication followed by the rest of the infant and the infant was placed on the maternal abdomen. Delayed cord clamping was employed for approximately 60 seconds. Cord was clamped and cut and gentle traction was applied to the cord and the placenta delivered spontaneously immediately following it was noted to be intact with three-vessel cord. The perineum and vagina were inspected and noted to have a second-degree perineal laceration that was repaired in the usual fashion with 3-0 Vicryl Rapide and an additional fig [id number] stitch at the introitus for hemostasis. EBL was 200 cc. Patient and infant tolerated delivery well. Presentation: LUIS CARLOS Placental Delivery Description: Spontaneous Placenta Disposition: [facility] Cord Vessel Description: 3 Vessels Nuchal Cord Compression: With compression Cord Entanglement: Around neck x 1, loose Estimated Blood Loss: 200 Infant A gender: Male (1 minute): 8 (5 minute): 9 Episiotomy Description: None Laceration: Perineal Extension/lac, 2nd degree Medications given after delivery: IV Pitocin Complications: None Multi Select Codes - Urinary/Genital Urinary/Genital CPT Codes: 86856 [facility]aginal [facility]
[2020-01-19] MEDS: Dibucaine 30 GM Tube 1 APPLIC TOPICAL (17:27)
[2020-01-19] MEDS: Senna/Docusate Sodium 1 Tablet PO (17:39)
[2020-01-19] MEDS: Naproxen 250 MG Tablet 500 MG PO (19:48)
[2020-01-20] VITALS (9 sets, daily range): BP systolic 91–113; BP diastolic 54–78; PULSE 87–94; RESP 16–18; TEMP 36.4–37.3; O2SAT 99
[2020-01-20] MEDS: Acetaminophen 500 MG Tablet 1000 MG PO ×2 (00:40→11:49)
[2020-01-20] MEDS: Naproxen 250 MG Tablet 500 MG PO (05:38)
--- NOTE | 2020-01-20 08:04 | PCM.PN.OB ---
Patient Problems: Active and Suspected Problems (Last Reviewed 01/17/20 @ 09:48 by Rachel Iverson) Active labor at term (Acute) Subjective: Doing well, no complaints.Pain controlled. Denies CP, SOB, N,V. Ambulating well, tolerating po. Lochia moderate, going well. - Physical Exam Vitals/I&O's: Vital Signs Temp Pulse Resp BP Pulse Ox 99.1 F 88 16 92/54 L 99 01/20/20 03:14 01/20/20 03:14 01/20/20 03:14 01/20/20 03:14 01/20/20 03:14 Oxygen Delivery Method Room Air Weight: 152 lb 6.4 oz Body Mass Index (BMI) 26.9 Intake and Output for Last 24 Hours 01/18/20 01/19/20 01/20/20 23:59 23:59 23:59 Intake Total 2816.80 / 2816.80 Output Total 2550 / 2550 Balance 266.80 / 266.80 General: Alert, Oriented x3 Abdomen: Soft, Non Tender, Non-Distended, - - FF below U Psych/Mental Status: Normal Affect, Appropriate Laboratory Results 01/19/20 17:30: Screen NEGATIVE, Baby's Blood Type O POSITIVE, Baby's TESHA NEGATIVE Current Medications Acetaminophen (Tylenol) 1,000 mg PO Q8H PRN PRN PRN Reason: Pain Score 1-3/10 Last Admin: 01/20/20 00:40 Dose: 1,000 mg Documented by: Bisacodyl (Dulcolax) 10 mg RECTAL UD PRN PRN Reason: If no BM Dibucaine (Dibucaine) 1 applic TOPICAL TID PRN PRN; Protocol PRN Reason: Discomfort Last Admin: 01/19/20 17:27 Dose: 1 tube Documented by: Famotidine (Pepcid) 20 mg PO DAILY JAMIA Hydrocortisone (Hytone) 1 applic TOPICAL TID PRN PRN; Protocol PRN Reason: Discomfort Methylergonovine Maleate (Methergine) 0.2 mg IM X1 PRN PRN Reason: Excess bleeding/uterine atony Naproxen (Naprosyn) 500 mg PO Q8H PRN PRN PRN Reason: Pain Score 1-3/10 Last Admin: 01/20/20 05:38 Dose: 500 mg Documented by: Ondansetron HCl (Zofran) 4 mg IV Q4H PRN PRN PRN Reason: Nausea Oxycodone HCl (Oxyir) 5 - 10 mg PO Q4H PRN PRN PRN Reason: Pain Score 4-10/10 Multivit/Folic Acid/Iron (Prenatabs Fa) 1 tablet PO DAILY@1200 JAMIA Senna/Docusate Sodium (Senokot-S, Dominique-Colace) 1 - 2 tablet PO DAILY PRN PRN PRN Reason: Constipation Last Admin: 01/19/20 17:39 Dose: 2 tablet Documented by: Simethicone (Mylicon) 80 mg PO PCHS PRN PRN Reason: Indigestion/Stomach pain Sodium Chloride () 5 - 15 ml IV UD PRN PRN Reason: SALINE FLUSH Medical Necessity - Tobacco Use Smoking Status: Never smoker Assessment/Plan All Active Problems (Last Reviewed 01/17/20 @ 09:48 by Rachel Iverson) Active labor at term (Acute) (Acute) Supervision of normal (Acute) Rh negative status during (Acute) Subchorionic hematoma in first trimester (Resolved) Uterine size-date discrepancy, third trimester (Resolved) s/p PPD # 1 1. routine post delivery care 2. breast feeding- support given 3. rh negative 4. rubella immune 5. home today
--- NOTE | 2020-01-20 08:05 | DCINST_ITS ---
Additional Instructions: If you experience any of the following, contact your healthcare provider. * Bleeding that soaks a pad every hour for 2 hours * Fever 100.4 or higher * Unrelieved incision or abdominal pain * Swelling, redness, discharge or bleeding from your incision or episiotomy site * Your incision begins to separate * Problems urinating (including inability to urinate or burning while urinating). * Visual changes * Severe headache * Flu-like symptoms * Pain or redness in one of both of your breasts * Pain, warmth, tenderness or swelling in your legs, especially the calf area * Frequent nausea and vomiting * Symptoms of depression or anxiety If you experience any of the following, call 911 or go to the nearest Emergency Room. * Chest pain * Problems breathing * Seizure activity * Partial or complete paralysis of a body part, slurred speech, weakness or drooping of the face, or a sudden inability to walk or hold your balance Allergies/Adverse Reactions: Allergies No Known Allergies Allergy (Verified 01/19/20 03:18) Medications to take at Discharge prenat.vits,sergio,[id number] 1 tab PO QDAY 08/15/17 Doxylamine Succinate [Unisom] 25 mg PO QHS 01/19/20 Famotidine [Pepcid] 20 mg PO DAILY 01/19/20 Primary Care Physician: Kisha Stuart DO [Primary Care Provider] - Test Results: Test results from this visit will be discussed in further detail at your follow- up appointment, if applicable.
--- NOTE | 2020-01-20 08:05 | PCM.DCVAG ---
Additional Instructions: If you experience any of the following, contact your healthcare provider. Bleeding that soaks a pad every hour for 2 hours Fever 100.4 or higher Unrelieved incision or abdominal pain Swelling, redness, discharge or bleeding from your incision or episiotomy site Your incision begins to separate Problems urinating (including inability to urinate or burning while urinating). Visual changes Severe headache Flu-like symptoms Pain or redness in one of both of your breasts Pain, warmth, tenderness or swelling in your legs, especially the calf area Frequent nausea and vomiting Symptoms of depression or anxiety If you experience any of the following, call 911 or go to the nearest Emergency Room. Chest pain Problems breathing Seizure activity Partial or complete paralysis of a body part, slurred speech, weakness or drooping of the face, or a sudden inability to walk or hold your balance Allergies/Adverse Reactions: Allergies No Known Allergies Allergy (Verified 01/19/20 03:18) Medications to take at Discharge prenat.vits,sergio,[id number] 1 tab PO QDAY 08/15/17 Doxylamine Succinate [Unisom] 25 mg PO QHS 01/19/20 Famotidine [Pepcid] 20 mg PO DAILY 01/19/20 Primary Care Physician: Kisha Stuart DO [Primary Care Provider] - Test Results: Test results from this visit will be discussed in further detail at your follow-up appointment, if applicable.
[2020-01-20] MEDS: Famotidine 20 MG Tablet PO (11:42)
[2020-01-21 14:52] VITALS: BP 138/95; PULSE 125
[2020-01-21 14:53] VITALS: PULSE 126; O2SAT 96
[2020-01-21 17:51] VITALS: BP 156/80; PULSE 80
== END 2020-01-20 15:30 | disposition home or self-care (01) | DRG 806 ==
LOC: WPOUT 04:45 → WP 04:45
PROVIDERS: Admitting Provider Obstetrics & Gynecology; PCP Family Medicine; Visit Provider Obstetrics & Gynecology
DX: O69.1XX0 Labor and delivery complicated by cord around neck, with compression, not applicable or unspecified (principal); O36.0130 Maternal care for anti-D [Rh] antibodies, third trimester, not applicable or unspecified; O70.1 Second degree perineal laceration during delivery; Z37.0 Single live birth; Z3A.40 40 weeks gestation of pregnancy
CPT/HCPCS: 59050; 85025; 85461; 86850; 86900; 86901; 90384; 99218; J7120; G0378; J2790

== ENCOUNTER → 2020-03-02 | Outpatient (CLI) | payer SELFPAY ==
[2020-03-02 11:29] VITALS: BMI 26.9
[2020-03-08 20:51] LABS: HPV Reflexed? NOT INDICATED
== END | disposition home or self-care (01) ==
PROVIDERS: PCP Family Medicine; Referring Provider Obstetrics & Gynecology; Visit Provider Obstetrics & Gynecology
DX: Z12.4 Encounter for screening for malignant neoplasm of cervix (principal)
CPT/HCPCS: 88175; G0145

== ENCOUNTER → 2020-09-27 15:59 | Outpatient (CLI) | payer SELFPAY ==
[2020-09-27 14:47] VITALS: BMI 22.3
[2020-09-27 17:21] LABS: Basophil# 0.03 X10^3/uL; Basophil% 0.3 % (0-1); Eosinophil# 0.05 X10^3/uL; Eosinophils% 0.5 % (0-5); Hematocrit 43.2 % (37-47); Hemoglobin 13.5 g/dL (12.0-15.0); Lymphocyte % 27.6 % (19-41); Mean Corp Hgb Conc 31.3 g/dL (32-36); Mean Corpuscular Hgb 26.9 pg (27.0-32.0); Mean Corpuscular Volume 86.1 fL (81-99); Mean Platelet Vol. 10.6 fl (6.2-12.0); Monocyte# 0.73 X10^3/uL; Monocyte% 6.7 % (0-10); NRBC Flagged by Analyzer 0 % (0-5); Neutrophil # 7.02 X10^3/uL (2.7-7.7); Neutrophil % 64.7 % (47-70); Platelet Count 302 K/mm3 (150-450); RBC Distribution Width CV 12.7 % (11.6-14.6); RBC Distribution Width SD 39.2 fl (35.1-43.9); Red Blood Count 5.02 M/mm3 (4.2-5.4); White Blood Count 10.9 K/mm3 (4.4-11.0)
[2020-09-27 17:39] LABS: Amphetamine Urine VISTA NEGATIVE (<1000 ng/mL); Barbiturate Urine VISTA NEGATIVE (< 200 ng/mL); Benzodiazepine Urine VISTA NEGATIVE (< 200 ng/mL); Cocaine Urine VISTA NEGATIVE (< 300 ng/mL); Ecstacy Urine VISTA NEGATIVE (< 500 ng/mL); Methadone Urine VISTA NEGATIVE (< 300 ng/mL); PCP Urine VISTA NEGATIVE (< 25 ng/mL); THC Urine VISTA NEGATIVE (< 50 ng/mL); Vista UDS pH Range 5
[2020-09-28 08:52] LABS: HIV - WCH Non-Reactive (Nonreactive); Hepatitis B Surface Antigen Non-Reactive (Nonreactive); Hepatitis C Antibody Non-Reactive (Nonreactive); Rubella IgG Reactive (Nonreactive); Syphilis Antibodies Non-reactive
[2020-09-30 03:07] LABS: Chlamydia By Nucleic Acid AMP Negative (Negative)
[2020-09-30 19:51] LABS: Gonococcus By Nucleic Acid AMP Negative (Negative)
== END ==
PROVIDERS: PCP Family Medicine; Referring Provider Obstetrics & Gynecology; Visit Provider Obstetrics & Gynecology
DX: Z34.80 Encounter for supervision of other normal pregnancy, unspecified trimester (principal)
CPT/HCPCS: 36415; 80307; 85025; 86703; 86762; 86780; 86803; 86850; 86900; 86901; 87086; 87088; 87340; 87491; 87591

== ENCOUNTER → 2020-12-11 08:20 | Outpatient (CLI) | payer SELFPAY ==
[2020-10-23 13:53] VITALS: BMI 22.4
[2020-11-20 13:16] VITALS: BMI 22.4
--- NOTE | 2020-12-11 08:22 | US_ITS ---
STUDY: SECOND AND THIRD TRIMESTER OBSTETRICAL ULTRASOUND REASON FOR EXAM: Female, 25 years old anatomy LMP: 07/29/2020. TECHNIQUE: Transabdominal and Transvaginal TECHNICAL QUALITY: Adequate. PRIOR ULTRASOUND: None. FINDINGS: There is a single intrauterine fetus. The fetus is in a cephalic presentation. There is demonstrated cardiac activity with a heart rate of 153 bpm. There is a normal amniotic fluid volume. The largest amniotic fluid pocket measures 7.3 cm x 4.4 cm. The amniotic fluid index (TOM) is within normal limits. The placenta is anterior and low lying but not previa in location. The tip of the placenta is at 2 cm from the cervical os. There are Grade 0 placental changes. The cervix measures 4.2 cm in length. The bilateral adnexal regions are normal. BIOMETRY: BPD: 4.17 cm: 18 weeks, 4 days HC: 16.7 cm: 19 weeks, 2 days AC: 14.09 cm: 19 weeks, 3 days FL: 2.88 cm: 18 weeks, 5 days CI: 68.4 FL/BPD: 69 FL/HC: FL/AC: 20.4 HC/AC: 1.19 age by current US: 19 weeks, 2 days. ESPERANZA by current US: 05/05/2021. Estimated weight: 276 grams, +/- 41 grams, 35.7 %. Age by LMP: 19 weeks, 2 days. ESPERANZA by LMP: 05/05/2021. ANATOMY: Gender: Male Cranium: Normal lateral ventricles. Normal choroid plexus. Normal cerebellum. Normal cisterna magna. Normal face, nose and lips. Chest: Normal 4-chamber heart. Abdomen/Pelvis: Normal diaphragm. Normal stomach. Normal abdominal wall. Normal cord insertion. Normal 3 vessel cord. Normal kidneys. Normal bladder. Spine: Normal cervical spine. Normal thoracic spine. Normal lumbar spine. Normal sacrum. Extremities: Normal bilateral upper extremities. Normal bilateral lower extremities. IMPRESSION: Single live uterine gestation with mean gestational age of 19 weeks and 2 days. Electronically Signed: Satya Motta MD at 15:46 EDT , Service support , STUDY: FIRST TRIMESTER OBSTETRICAL ULTRASOUND REASON FOR EXAM: Female, 25 years old . Placental location. TECHNIQUE: Transvaginal TECHNICAL QUALITY: Adequate. PRIOR ULTRASOUND: None. FINDINGS: The placenta is anterior in location and low lying. The tip of the placenta is at 2 cm from the cervical os. US/OB Anatomy Scan IMPRESSION: Low-lying anterior placenta. Electronically Signed: Satya Motta MD at 15:47 EDT , Service support ,
== END ==
PROVIDERS: PCP Family Medicine; Referring Provider Obstetrics & Gynecology; Visit Provider Obstetrics & Gynecology
DX: Z34.80 Encounter for supervision of other normal pregnancy, unspecified trimester (principal)
CPT/HCPCS: 76805; 76830

== ENCOUNTER → 2021-02-12 13:47 | Outpatient (CLI) | payer SELFPAY ==
[2021-02-12 14:42] LABS: Absolute Lymphocyte Count 2.09 X10^3/uL (0.83-4.51); Absolute Neutrophil Count 6.6 X10^3/uL (2.0-7.7); Basophil# 0.02 X10^3/uL; Basophil% 0.2 % (0-1); Eosinophil# 0.04 X10^3/uL; Eosinophils% 0.4 % (0-5); Hemoglobin 9.8 g/dL (12.0-15.0); Lymphocyte # 2.09 X10^3/ul (0.83-4.51); Lymphocyte % 22.3 % (19-41); Mean Corp Hgb Conc 30.6 g/dL (32-36); Mean Corpuscular Hgb 26.3 pg (27.0-32.0); Mean Corpuscular Volume 85.8 fL (81-99); Mean Platelet Vol. 10.3 fl (6.2-12.0); Monocyte# 0.59 X10^3/uL; Monocyte% 6.3 % (0-10); NRBC Flagged by Analyzer 0 % (0-5); Neutrophil % 70.3 % (47-70); Platelet Count 204 K/mm3 (150-450); RBC Distribution Width CV 12.6 % (11.6-14.6); Red Blood Count 3.73 M/mm3 (4.2-5.4); White Blood Count 9.4 K/mm3 (4.4-11.0)
[2021-02-12 15:25] LABS: Glucose Challenge Gest 1H 50g 146 mg/dL (70-140)
== END ==
PROVIDERS: PCP Family Medicine; Referring Provider Nurse Practitioner Women's Health; Visit Provider Nurse Practitioner Women's Health
DX: Z34.92 Encounter for supervision of normal pregnancy, unspecified, second trimester (principal); Z3A.20 20 weeks gestation of pregnancy
CPT/HCPCS: 36415; 82950; 85025; 86850; 86900; 86901

== ENCOUNTER → 2021-02-16 06:48 | Outpatient (CLI) | payer SELFPAY ==
[2021-02-16 07:20] LABS: Glucose GTT-Gestation. Fasting 80 mg/dL (<105)
[2021-02-16 08:51] LABS: Glucose GTT-Gestational 1 Hr 143 mg/dL (<190)
[2021-02-16 10:19] LABS: Glucose GTT-Gestational 2 Hr 96 mg/dL (<165)
[2021-02-16 10:58] LABS: Glucose GTT-Gestational 3 Hr 42 L (<145)
== END ==
PROVIDERS: PCP Family Medicine; Referring Provider Obstetrics & Gynecology; Visit Provider Obstetrics & Gynecology
DX: Z13.1 Encounter for screening for diabetes mellitus (principal)
CPT/HCPCS: 36415; 82951; 82952

== ENCOUNTER → 2021-03-12 14:00 | Outpatient (CLI) | payer SELFPAY ==
[2021-03-12 14:50] LABS: Absolute Lymphocyte Count 2.07 X10^3/uL (0.83-4.51); Absolute Neutrophil Count 5.4 X10^3/uL (2.0-7.7); Basophil# 0.02 X10^3/uL; Basophil% 0.2 % (0-1); Eosinophil# 0.03 X10^3/uL; Eosinophils% 0.4 % (0-5); Hematocrit 33.9 % (37-47); Hemoglobin 10.4 g/dL (12.0-15.0); Lymphocyte # 2.07 X10^3/ul (0.83-4.51); Lymphocyte % 25.1 % (19-41); Mean Corp Hgb Conc 30.7 g/dL (32-36); Mean Corpuscular Hgb 26.3 pg (27.0-32.0); Mean Corpuscular Volume 85.6 fL (81-99); Monocyte# 0.67 X10^3/uL; Monocyte% 8.1 % (0-10); NRBC Flagged by Analyzer 0 % (0-5); Neutrophil # 5.42 X10^3/uL (2.7-7.7); Neutrophil % 65.6 % (47-70); Platelet Count 184 K/mm3 (150-450); RBC Distribution Width CV 14.9 % (11.6-14.6); RBC Distribution Width SD 45.5 fl (35.1-43.9); Red Blood Count 3.96 M/mm3 (4.2-5.4); White Blood Count 8.3 K/mm3 (4.4-11.0)
== END ==
PROVIDERS: PCP Family Medicine; Referring Provider Obstetrics & Gynecology; Visit Provider Obstetrics & Gynecology
DX: O99.019 Anemia complicating pregnancy, unspecified trimester (principal); D64.9 Anemia, unspecified; Z3A.00 Weeks of gestation of pregnancy not specified
CPT/HCPCS: 36415; 85025

== ENCOUNTER → 2021-04-09 | Outpatient (CLI) | payer SELFPAY | END | disposition home or self-care (01) | LOC: LABSPEC 15:49 | PROVIDERS: PCP Family Medicine; Visit Provider Obstetrics & Gynecology | DX: Z34.80 Encounter for supervision of other normal pregnancy, unspecified trimester (principal) | CPT/HCPCS: 87081 ==

== ENCOUNTER 2021-05-02 04:30 | Inpatient (IN) | payer SELFPAY ==
[2021-05-02] VITALS (28 sets, daily range): BP systolic 103–128; BP diastolic 57–91; PULSE 76–104; RESP 16–20; TEMP 36.3–36.9; O2SAT 96–99; BMI 27.6
[2021-05-02 04:55] LABS: Absolute Lymphocyte Count 2.87 X10^3/uL (0.83-4.51); Absolute Neutrophil Count 4.1 X10^3/uL (2.0-7.7); Basophil# 0.02 X10^3/uL; Basophil% 0.3 % (0-1); Eosinophil# 0.05 X10^3/uL; Eosinophils% 0.6 % (0-5); Hematocrit 42.3 % (37-47); Hemoglobin 13.5 g/dL (12.0-15.0); Lymphocyte # 2.87 X10^3/ul (0.83-4.51); Lymphocyte % 36.3 % (19-41); Mean Corp Hgb Conc 31.9 g/dL (32-36); Mean Corpuscular Hgb 27.7 pg (27.0-32.0); Mean Corpuscular Volume 86.7 fL (81-99); Mean Platelet Vol. 11.2 fl (6.2-12.0); Monocyte# 0.83 X10^3/uL; Monocyte% 10.5 % (0-10); NRBC Flagged by Analyzer 0 % (0-5); Neutrophil # 4.08 X10^3/uL (2.7-7.7); Neutrophil % 51.7 % (47-70); Platelet Count 181 K/mm3 (150-450); RBC Distribution Width CV 17.3 % (11.6-14.6); RBC Distribution Width SD 55.2 fl (35.1-43.9); Red Blood Count 4.88 M/mm3 (4.2-5.4); White Blood Count 7.9 K/mm3 (4.4-11.0)
--- NOTE | 2021-05-02 05:27 | HP.PCM.OB_ITS ---
HPI - General General Date of Admission: 05/02/21 HPI Narrative JEFE ROMAN, is a 25 F who presents in active labor. She denies any bleeding or loss of fluid admits good movement. She is having regular contractions increasing over the last 2 hours. Maternal Data Information ESPERANZA Calculator Estimated Delivery Date Method Current WG Current Estimate 05/05/21 Ultrasound #1 39w 4d Other Estimates 04/23/21 LMP (Certain) 41w 2d PFSH PFS Medical History Abnormal glucose affecting Anxiety History of tetanus, diphtheria, and acellular pertussis booster vaccination (Tdap) Home Medications prenat.vits,sergio,ako-gaze-kjvxx 1 tab PO QDAY 08/15/17 [History Last Taken 05/01/21] doxylamine succinate 25 mg tablet 25 mg PO QHS PRN 09/19/20 [History Last Taken 05/01/21] pyridoxine (vitamin B6) 100 mg tablet 100 mg PO DAILY 09/19/20 [History Last Taken 05/01/21] Allergy/AdvReac Type Severity Reaction Status Date / Time No Known Allergies Allergy Verified 05/02/21 04:48 Surgical History History of tonsillectomy Social History adopted: No household members: family housing: house number of children: 2 current occupation: homemaker Smoking Status: Never smoker alcohol intake: never substance use type: does not use caffeine: Yes frequency: 1-2 times per week seatbelt use: always do you feel safe at home: Yes additional social history: Michael- Pharmacist History 3 Elective abortions Hx Para 2 Spontaneous abortions Hx # Term Pregnancies Ectopic pregnancies Hx # Pregnancies Multiple births # of living children 2 Past Pregnancies Del. Date Name GA/Weeks Outcome Route Bth Weight Gen Labor Lgth Anes t hesia Del Locatn Provider FOB 04/08/18 Camdyn 41 live - full term 7lbs 2oz Female 14 hours epidural [facility] ABEBA Rodriguez 01/19/20 Chao 40 live - full term 7lbs 2oz Male 5 hours e pidural [facility] Mariel Rodriguez Delivery Date: 04/08/18 isolated maternal fever; moderate meconium; BP dropped and could not feel hands or neck after getting Epidural. Kait Senior Delivery Date: 01/19/20 Perineal Extension/lac, 2nd degree; cord around neck x1- loose; BP dropped and could not feel hands or neck after getting Epidural. Kait Senior Visit Details Expected Delivery Route/Plan Labor Preferences- CB/BF classes: no labor support person: Michael labor intervention preferences: [] pain management options preferred: limited intervention cut cord/dad catch: yes : yes PP control planned: discussed, planning vasectomy discussed possible routes of delivery and associated risks: [] special requests: [] Plans covid status: pos in past and she was symptomatic, counseled regarding risk of covid in vs vaccination and declined vaccination flu vaccine: given tdap vaccine: given rhogam: given 02/12 LARC form signed: yes movement and labor precautions reviewed. Problem list reviewed and updated with the most current plan of care details and appropriate orders placed. Relevant counseling for the gestational age provided. Continue routine care and follow up unless otherwise noted in visit notes/problem list details OB Flowsheet Initial Weight: 125 lb Date -?-?-?-?-?-?-?-?-?-?-?-?- EGA Weight BP Urine Prot -?-?-?-?-?-?-?-?-?-?-?-?- Glucose FHR FuHt Pres Dilation -?-?-?-?-?-?-?-?-?-?-?-?- Effaced St Visit Note 09/27/20 -?-?-?-?-?-?-?-?-?-?-?-?- 8w 4d 126 lb (+16 oz) 110/80 -?-?-?-?-?-?-?-?-?-?-?-?- 170 -?-?-?-?-?-?-?-?-?-?-?-?- GP - CRL 17mm co nsistent with LMP. 10/23/20 -?-?-?-?-?-?-?-?-?-?-?-?- 12w 2d 127 lb (+2 lb) 104/82 Negative -?-?-?-?-?-?-?-?-?-?-?-?- Negative 153 -?-?-?-?-?-?-?-?-?-?-?-?- GP - no cramping or bleeding. PRR. Anatomy ordered. 11/20/20 -?-?-?-?-?-?-?-?-?-?-?-?- 16w 2d 130 lb 2 oz (+5 lb 2 oz) 118/60 Negative -?-?-?-?-?-?-?-?-?-?-?-?- Negative 164 -?-?-?-?-?-?-?-?-?-?-?-?- MH-No VB, LOF An atomy US scheduled. Doing well 12/20/20 -?-?-?-?-?-?-?-?-?-?-?-?- 20w 4d 133 lb 8 oz (+8 lb 8 oz) 92/70 Negative -?-?-?-?-?-?-?-?-?-?-?-?- Negative 145 -?-?-?-?-?-?-?-?-?-?-?-?- GP - no ctx, LOF , VB, DFM. Anatomy normal. It's a boy! 01/15/21 -?-?-?-?-?-?-?-?-?-?-?-?- 24w 2d 140 lb (+15 lb) 100/70 -?-?-?-?-?-?-?-?-?-?-?-?- 145 24 -?-?-?-?-?-?-?-?-?-?-?-?- SM- no vb lof cr amping. 02/12/21 -?-?-?-?-?-?-?-?-?-?-?-?- 28w 2d 144 lb 4 oz (+19 lb 4 oz) 102/60 Negative -?-?-?-?-?-?-?-?-?--?-?-?- Negative 141 28 -?-?-?-?-?-?-?-?-?-?-?-?- MH-No VB, LOF. G ood Fm. 28 wk labs. tdap, rhogam, larc 02/26/21 -?-?-?-?-?-?-?-?-?-?-?-?- 30w 2d 147 lb 8 oz (+22 lb 8 oz) 110/78 Negative -?-?-?-?-?-?-?-?-?-?-?-?- Negative 130 30 -?-?-?-?-?-?-?-?-?-?-?-?- GP - no LOF, VB, DFM, ctx. Denies complaints. 03/12/21 -?-?-?-?-?-?-?-?-?-?-?-?- 32w 2d 148 lb 8 oz (+23 lb 8 oz) 100/72 Negative -?-?-?-?--?-?-?-?-?-?-?-?- Negative 130 33 -?-?-?-?-?-?-?-?-?-?-?-?- SM- no vb lof go od fm no reuglar ctx 03/26/21 -?-?-?-?-?-?-?-?-?-?-?-?- 34w 2d 100/78 Negative -?-?-?-?-?-?-?-?-?-?-?-?- Negative 145 34 -?-?-?-?-?-?-?-?-?-?-?-?- SM- no vb lof go od fm no reular ctx 04/09/21 -?-?-?-?-?-?-?-?-?-?-?-?- 36w 2d 154 lb 6 oz (+29 lb 6 oz) 108/80 Negative -?-?-?-?-?-?-?-?-?-?-?-?- Negative 140 36 -?-?-?-?-?-?-?-?-?--?-?-?- Sm- no vb lof go od fm no reuglar ctx gbs done 04/16/21 -?-?-?-?-?-?-?-?-?-?-?-?- 37w 2d 157 lb (+32 lb) 122/84 Negative -?-?-?-?-?-?-?-?-?-?-?-?- Negative 140 37 -?-?-?-?-?-?-?-?-?-?-?-?- SM- no vb lof go od fm no regular ctx 04/23/21 -?-?-?-?-?-?-?-?-?-?-?-?- 38w 2d 157 lb (+32 lb) 116/80 -?-?-?-?-?-?-?-?-?-?-?-?- 140 38 Cephalic 1 -?-?-?-?-?-?-?-?-?-?-?-?- SM- no vb lof go od fm no reg ctx 04/30/21 -?-?-?-?-?-?-?-?-?-?-?-?- 39w 2d 158 lb 2 oz (+33 lb 2 oz) 110/86 Negative -?-?-?-?-?-?-?-?-?-?-?-?- Negative 120 39 3 -?-?-?-?-?-?-?-?-?-?-?-?- 60 -2 SM- no vb lof some dec fm, no regular ctx 05/02/21 -?-?-?-?-?-?-?-?-?-?-?-?- 39w 4d 155 lb 12.8 oz (+30 lb 12.8 oz) 128/91 -?-?-?-?-?-?-?-?-?-?-?-?- -?-?-?-?-?-?-?-?-?-?-?-?- NST FHR Rate Baby A Baseline: 130 Variability:: Moderate Accelerations:: 15 x 15 Decelerations:: None NST Reactive:: Yes FHR Category:: Category I Uterine Activity:: q3-5 ROS Constitutional Constitutional: Reports systems reviewed and no addt'l complaints, except as documented ENT HEENT: Reports systems reviewed and no addt'l complaints, except as documented Cardiovascular Cardiovascular: Reports systems reviewed and no addt'l complaints, except as documented Respiratory/Chest Respiratory/Chest: Reports systems reviewed and no addt'l complaints, except as documented Gastrointestinal Gastrointestinal: Reports systems reviewed and no addt'l complaints, except as documented and nausea; Denies abdominal pain Genitourinary Genitourinary: Reports systems reviewed and no addt'l complaints, except as documented, contractions Details: present and frequency (regular ) and movement Details: present Musculoskeletal Musculoskeletal: Reports systems reviewed and no addt'l complaints, except as documented Integumentary Integumentary: Reports as per HPI Neurologic Neurologic: Reports systems reviewed and no addt'l complaints, except as documented Endocrine Endocrinology: Reports systems reviewed and no addt'l complaints, except as documented Vital Signs Vital Signs Vital Signs: 05/02/21 04:24 05/02/21 05:17 Pulse Rate 87 104 H Blood Pressure 128/91 H BP Systolic 128 BP Diastolic 91 Pulse Ox 98 Weight Weight: 155 lb 12.8 oz Body Mass Index (BMI) 27.6 Physical Exam Const alert, oriented x3 and healthy appearing Constitutional Narrative: uncomfortable with contractions HEENT normocephalic and moist oral mucous membranes Head and Scalp: atraumatic Neck full ROM, no lymphadenopathy, supple and thyroid normal General: trachea midline Thyroid: thyroid normal Lymph Lymphatic: no lymphadenopathy noted Chest inspection of chest normal Resp normal respiratory effort Cardio regular rate GI normal to inspection, nondistended, normoactive bowel sounds, soft to palpation and non-tender Inspection: gravid external exam normal Bimanual Exam - Vag & Uterus: uterus non-tender Manual OB Exam: estimated gestational size appropriate, presentation cephalic, dilated 6, effaced 70 and station -1 Extremity normal to inspection General Extremity: Negative for edema Skin no rashes or lesions noted Neuro deep tendon reflexes 2+ bilaterally Motor Exam: strength 5/5 throughout and clonus absent Psych mental status grossly normal Labs Labs Labs: Blood Type O NEGATIVE Antibody Screen NEGATIVE Hct 42.3 % (37-47) Hgb 13.5 g/dL (12.0-15.0) Obstetrics US Syphilis Total Ab Non-reactive VZV IgG Antibody 587 index (Immune >165) Rubella IgG Antibody Reactive (Nonreactive) Hep Bs Antigen Non-Reactive (Nonreactive) Neisseria gonorrhoeae DNA (EMY) Negative (Negative) HIV 1&2 Antibody Non-Reactive (Nonreactive) C.trachomatis DNA (PCR) Negative (Negative) Glucose 1 Hr 50 gm 146 mg/dL (70-140) H Group B Strep DNA Negative (Negative) Rhogam given: Yes Miscellaneous Test Assessment & Plan (1) Abnormal glucose affecting : COMMENT: Normal 3 hr GTT (2) Anemia affecting , antepartum: COMMENT: Start Fe and recheck CBC 4 weeks (3) Anxiety: COMMENT: 02/12 stable (4) Short interval between pregnancies affecting , antepartum: COMMENT: previous 01/2020 (5) Rh negative state in antepartum period: COMMENT: O neg; Rhogam PRN and at 28 weeks-Rhogam given 09/27/20, 02/12/21 (6) Supervision of other normal : COMMENT: PRR ESPERANZA: 04/20/21 Boy PC: Chao Hamilton Spouse: Michael (7) : QUALIFIERS: Weeks of gestation: 39 weeks Qualified Code(s): Z3A.39 - 39 weeks gestation of COMMENT: declines genetic, carrier and AFP. Anatomy US normal, GBS neg (8) Active labor at term: COMMENT: admit IAL, exp management, labor support. pit PRN
[2021-05-02] MEDS: Oxytocin 30 units/NS 500 ml 30 UNITS/500 ML IV.SOLN 334 UNITS IV (06:11)
[2021-05-02] MEDS: Naproxen 500 MG Tablet PO ×2 (07:39→15:50)
[2021-05-02] MEDS: 0.9% Saline Lock 10 ML Syringe IV (08:45)
[2021-05-02] MEDS: Senna/Docusate Sodium 1 Tablet PO (09:28)
[2021-05-02] MEDS: Acetaminophen 500 MG Tablet 1000 MG PO ×2 (12:03→21:19)
--- NOTE | 2021-05-02 13:47 | NURSING ---
Nursing instruction reviewed students nurse charting and agree. This is used for educational and learning purposes
[2021-05-03] VITALS (7 sets, daily range): BP systolic 103–121; BP diastolic 70–78; PULSE 77–112; RESP 16–20; TEMP 36.5–36.9
[2021-05-03] MEDS: Acetaminophen 500 MG Tablet 1000 MG PO (05:45)
[2021-05-03] MEDS: Naproxen 500 MG Tablet PO (09:29)
[2021-05-03] MEDS: Senna/Docusate Sodium 1 Tablet PO (09:29)
--- NOTE | 2021-05-03 12:06 | OP.PCM_ITS ---
Assessment & Plan (1) Active labor at term: COMMENT: admit IAL, exp management, labor support. pit PRN (2) Abnormal glucose affecting : COMMENT: Normal 3 hr GTT (3) Anemia affecting , antepartum: COMMENT: Start Fe and recheck CBC 4 weeks (4) Anxiety: COMMENT: 02/12 stable (5) Short interval between pregnancies affecting , antepartum: COMMENT: previous 01/2020 (6) Rh negative state in antepartum period: COMMENT: O neg; Rhogam PRN and at 28 weeks-Rhogam given 09/27/20, 02/12/21 (7) Supervision of other normal : COMMENT: PRR ESPERANZA: 04/20/21 Boy PC: Chao Hamilton Spouse: Michael (8) : QUALIFIERS: Weeks of gestation: 39 weeks Qualified Code(s): Z3A.39 - 39 weeks gestation of COMMENT: declines genetic, carrier and AFP. Anatomy US normal, GBS neg Maternal Data Information ESPERANZA Calculator Estimated Delivery Date Method Current WG Current Estimate 05/05/21 Ultrasound #1 39w 5d Other Estimates 04/23/21 LMP (Certain) 41w 3d Vaginal Delivery Maternal Presentation Maternal Presentation: Active Labor Operative Information Date of Procedure: 05/02/21 Pre-Operative Diagnosis: IAL Post-Operative Diagnosis: same Surgery / Procedure Performed: Spontaneous Vaginal Delivery Type of Anesthesia: None Special Medications: none Estimated Blood Loss: 200 Fluids Replaced: crystalloid Findings Description of Procedure: Patient began pushing and delivered the head in the [MEGHAN] presentation. The head was delivered atraumatically [and a loose nuchal cord ?1 was identified and the delivered through without complication]. The anterior and posterior shoulders delivered without complication followed by the rest of the infant and the was placed on the maternal abdomen. Delayed cord clamping was employed for approximately 60 seconds. Cord was clamped and cut and gentle traction was applied to the cord and the placenta delivered spontaneously immediately following it was noted to be intact with t hree-vessel cord. The perineum and vagina were inspected and [noted to have no laceration]. EBL was [100 cc]. Patient and infant tolerated delivery well. Presentation: MEGHAN Amniotic Membrane Rupture Type: Artificial Amniotic Fluid Description: Clear Placental Delivery Description: Spontaneous Placenta Disposition: [facility] Cord Vessel Description: 3 Vessels Cord Entanglement: None Infant A Gender: Male Delayed Cord Clamping: Yes Post Vaginal Delivery Medications Given After Delivery: IV Pitocin Episiotomy Description: None Laceration: None Complication Complications: None Procedures Urinary/Genital [id number]: [id number] Vaginal Delivery [facility]
--- NOTE | 2021-05-03 12:07 | PCM.DC ---
Discharge Instructions Diet Discharge Diet: No restrictions Activity Discharge Activity: Return to Normal Activity, May Not Drive (while taking narcotic pain medications.) and May Shower May resume sexual activity in: 4-6 weeks Dressing / Incision Call your doctor if your incision/area has: Continuous Slow Oozing, Sudden Increased Bleeding, Increased Pain/ Swelling, Increased Redness and Foul Smelling Discharge Follow Up Care Please Follow Up With: Sangeetha Floyd MD When: Call [phone] to make an appointment with your doctor in 6 weeks. If you had elevated blood pressure or 4th degree laceration, you will need to be seen in 2 weeks. Test Results: Test results from this visit will be discussed in further detail at your follow-up appointment, if applicable. Discharge Plan Admission Admit Date/Time: 05/02/21 04:30 Primary Reason for Your Visit: vaginal delivery Attending Provider: Sangeetha Floyd Primary Care Provider: Kisha Stuart Discharge Orders/Prescriptions Prescriptions: No Action prenat.vits,sergio,eff-nixw-kyvbt [ Vitamin] tablet 1 tab PO QDAY RF: 0 pyridoxine (vitamin B6) 100 mg tablet 100 mg PO DAILY RF: 0 Unisom (doxylamine) 25 mg tablet 25 mg PO QHS PRN (Reason: ) RF: 0 Referrals / Follow Up: Kisha Stuart DO [Primary Care Provider] - Disposition Disposition (needs filled in before D/C Order can be placed): Home, Self Care
--- NOTE | 2021-05-03 12:09 | PCM.PN.OB ---
Subjective Subjective Patient doing well without complaints. Tolerating PO. Ambulating and voiding without difficulty. feeding well. Denies chest pain, shortness of breath, calf pain/swelling, fevers, chills, lightheadedness. Objective Data Objective Data Vital Signs: Vital Signs Temp Pulse Resp BP Pulse Ox 97.9 F 77 16 103/70 97 05/03/21 07:30 05/03/21 07:30 05/03/21 07:30 05/03/21 07:30 05/02/21 15:51 Oxygen Delivery Method Room Air Weight: 155 lb 12.8 oz Body Mass Index (BMI) 27.6 Intake & Output: Intake and Output for Last 24 Hours 05/01/21 05/02/21 05/03/21 23:59 23:59 23:59 Intake Total 500 / 500 Output Total 200 / 200 Balance 300 / 300 Lab / Micro Data Result Diagrams: 05/02/21 04:30 Micro: Microbiology 05/02/21 04:30 Nasal Secretion SARS-CoV-2 Antigen (Rapid) - Final ROS Constitutional Constitutional: Reports systems reviewed and no addt'l complaints, except as documented Cardiovascular Cardiovascular: Reports systems reviewed and no addt'l complaints, except as documented Respiratory/Chest Respiratory/Chest: Reports systems reviewed and no addt'l complaints, except as documented Gastrointestinal Gastrointestinal: Reports systems reviewed and no addt'l complaints, except as documented Physical Exam Const alert, oriented x3 and no apparent distress HEENT Head and Scalp: atraumatic Resp normal respiratory effort GI soft to palpation and non-tender Bimanual Exam - Vag & Uterus: uterus non-tender Uterus Palpation: uterus fundus firm (below Umbilicus)
== END 2021-05-03 16:50 | disposition home or self-care (01) | DRG 807 ==
LOC: WPOUT 04:31 → WP 04:31
PROVIDERS: Admitting Provider Obstetrics & Gynecology; PCP Family Medicine; Visit Provider Obstetrics & Gynecology
DX: O99.02 Anemia complicating childbirth (principal); Z37.0 Single live birth; O69.81X0 Labor and delivery complicated by cord around neck, without compression, not applicable or unspecified; D64.9 Anemia, unspecified; O99.814 Abnormal glucose complicating childbirth; O26.893 Other specified pregnancy related conditions, third trimester; Z67.41 Type O blood, Rh negative; Z3A.39 39 weeks gestation of pregnancy; Z87.59 Personal history of other complications of pregnancy, childbirth and the puerperium
CPT/HCPCS: 59025; 59050; 85025; 85461; 86850; 86900; 86901; 87426; 90384; 99218; A4216; G0378; J2790

== ENCOUNTER → 2022-06-18 | Outpatient (CLI) | payer BC, SELFPAY ==
[2022-06-24 12:41] LABS: HPV Reflexed? NOT INDICATED
== END | disposition home or self-care (01) ==
PROVIDERS: PCP Family Medicine; Referring Provider Obstetrics & Gynecology; Visit Provider Obstetrics & Gynecology
DX: M62.89 Other specified disorders of muscle (principal)
CPT/HCPCS: 88175; G0145

== ENCOUNTER 2022-10-24 09:00 | Outpatient (RCR) | payer OTHER, SELFPAY ==
--- NOTE | 2022-08-14 13:34 | HP.PTEVAL ---
Patient's Visit Information JEFE ROMAN is a 27 year old F referred to Physical Therapy by Dr. Sangeetha Floyd MD with a diagnosis of PELVIC FLOOR DYSFUNCTION. Date of Evaluation: 08/14/22 Physical Therapist: Janessa Plummer PT, Cert MDT - Visit Plan Frequency: 1x/Week Duration: 8-10 WKS Plan: PELVIC FLOOR STRENGTHENING. URGE AND FREQUENCY EDUCATION. HEALTHY BLADDER HABIT EDUCATION. TRAINING IN COORDINATION OF PELVIC FLOOR MUSCULATURE WITH HIP AND CORE (TRANSVERSE ABDOMINUS) MUSCULATURE. POSTURE CORRECTION/STRENGTHENING. CORE STRENGTHENING. LIONEL LE ROM, STRETCHING AND STRENGTHENING. TRAINING IN ABDOMINAL CAVITY PRESSURE MGMT WITH ADL'S. - Subjective Work/Leisure: MASSAGE THERAPY FROM HOME - ONE MASSAGE A WEEK. STAY AT HOME MOM OF 3 CHILDREN AGES 4, 2 AND 1. Disability: NO. Present symptoms: PATIENT REPORTS SHE HAD THE FLU IN MAY AND WAS COUGHING A LOT AND COULDN'T HOLD HER URINE. NOW SHE IS JUST HAVING INTERMITTENT LEAKING WITH ACTIVITIES LIKE WORKING OUT, COUGHING AND JUMPING. ALSO HAS URGE INCONTINENCE - CAN'T ALWAYS MAKE IT TO THE BATHROOM IN TIME. NO PAIN. Present since: CHRONIC STRESS INCONTINENCE. URGE INCONTINENCE FOR ABOUT 4 YEARS SINCE STARTING HAVING CHILDREN. Is it getting better, worse or staying the same: STAYING THE SAME. Commenced as a result of: NO APPARENT REASON. Symptoms at onset: URINE LEAKING WITH ACTIVITY. Worse: DELAYING URINATION TOO LONG, ACTIVITIES LIKE ABOVE MENTIONED. Better: NOTHING. Disturbed sleep: GETTING UP TO URINATE 0-1 TIMES AT NIGHT. Previous history/Previous treatment: NOTHING. Treatment this episode: CONSULT FOR PT. Gait: NORMAL. How long can you delay the need to urinate: APPROX 30 MIN. Prolapse (Falling out feeling): NO. Frequency of Urination: ABOUT 5 TIMES A DAY. Ability to stop urine flow: YES. Ability to initiate urine stream: YES. Dyspareunia: NO. Bowel Incontinence: NO. Accidents: NO. Unexplained weight loss: NO. Imaging: NONE. PMH/Recent major surgery: UNREMARKABLE. OTHER: MOVING TO [place] AT END OF OCTOBER. NOT USING PAD PROTECTION. - Objective Sitting/Standing Posture: FAIR. SLOUCHED. POOR POSTURAL STRENGTH. Other Observations: INDEP GAIT AND TRANSFERS. Sensory deficit: LIONEL LE LIGHT TOUCH SENSATION GROSSLY INTACT AND SYMMETRICAL. ROM deficit: MILD LIONEL HIP ADDUCTOR, HS AND GASTROC SOLEUS COMPLEX TIGHTNESS. Motor deficit: LIONEL LE'S GROSSLY 5/5 WITH MMT'ING EXCEPT HIPS 4/5. Dural Signs: NEGATIVE LIONEL LE'S. Lumbar mvmt loss: flex - NIL. ext - NIL. R SG - NIL. L SG - NIL. Core strength: POOR. Palpation: INTERNAL MANUAL PELVIC FLOOR EXAM REVEALS POOR PELVIC FLOOR STRENGTH AND ENDURANCE GRADED 2/5 WITH 3 SEC HOLD. NO PELVIC TENDERNESS OR TRIGGER POINTS WITH PALPATION. FUNCTIONAL SCREEN: Incontinence Impact Questionnaire Score: 2. Urogenital Distress Inventory Score: 6. TREATMENT: INSTRUCTED PATIENT IN QUICK FLICK KEGEL EX'S X 8, 3 TIMES A DAY. MANUAL AND VERBAL CUEING NEEDED TO TRY TO GET PATIENT TO AVOID COMPENSATION WITH ABS AND GLUTS. - Goals Goal 1:: DECREASE URINARY LEAKAGE EPISODES TO ONE OR LESS PER DAY Goal Time Frame: 6-8 Weeks Goal 2:: PATIENT WILL SUCCESSFULLY DELAY VOIDING FOR 60 MINUTES WHEN URGENCY OCCURS Goal Time Frame: 2-4 Weeks Goal 3:: PATIENT WILL HAVE INCREASED PELVIC FLOOR MUSCLE STRENGTH GRADE TO 5/5 Goal Time Frame: 8-12 Weeks Goal 4:: PATIENT WILL DEMONSTRATE 10 CONSISTENT AND CONSECUTIVE 10 SECOND PELVIC FLOOR MUSCLE CONTRACTIONS TO DEMONSTRATE IMPROVED PELVIC FLOOR ENDURANCE. Goal Time Frame: 8-12 Weeks Goal 5:: DEVELOP HEALTHY FLUID INTAKE HABITS WITH FLUID INTAKE OF ? BODY WEIGHT IN OUNCES PER DAY AND 2/3 BEING WATER. NORMALIZE VOIDING FREQUENCEY TO EVERY 3-4 HOURS. Goal Time Frame: 2-4 Weeks Goal 6:: PATIENT WILL BE INDEP WITH A HEP/HOME INSTRUCTIONS FOR CONTINUED IMPROVEMENT ONCE FORMAL PHYSICAL THERAPY CONCLUDES. Goal Time Frame: 8-12 Weeks - Anticipated Interventions Patient/Client Instruction: Educate patient on: Condition, Plan of Care, Risk Factors For the Purpose of:: To improve self management Therapeutic Exercise to Include: Strength training, Endurance training, Coordination, Postural training, Flexibilty training, Neuromotor development For the Purpose of:: To improve muscle performance and motor function, To increase tolerance to activity/condition/position, To improve ability of physical actions for home/community/work/leisure Thank you for the opportunity to evaluate your patient. For Medicare and Medicare HMO plans, please review the plan of care and approve it. It will need to be FAXED BACK to us at [phone] for Medicare purposes. For Medicare only, by signing this I certify the plan of care. Please let me know if there are questions or concerns regarding this plan of care. Physician Signature: Date:
--- NOTE | 2022-10-24 10:52 | HP.PTDCSUM_ITS ---
It has been my pleasure to treat JEFE ROMAN referred by Dr. Sangeetha Floyd MD, with the diagnosis of PELVIC FLOOR DYSFUNCTION for a total of 10 visit(s). Discharge Date: Please see the following information for a summary of their discharge status. Subjective: PATIENT REPORTS SHE IS CONTINUING TO IMPROVE - GETTING MORE CONTROL AND LESS LEAKING. SHE STATES I FEEL LIKE I AM DEFINATELY MAKING PROGRESS AND IT IS GREAT. VOIDING EVERY 1.5 TO 3 HOURS A DAY DEPENDING ON WHAT AND HOW MUCH SHE IS DRINKING. ABLE TO AVOID LEAKING MOST DAYS. PATIENT STATES SHE CAN'T BELIEVE SHE WAS DOING KEGELS WRONG FOR SO LONG BEFORE STARTING THIS PT. SHE STATES SHE FEELS confident ABOUT HOW TO CONTRACT THE MUSCLES NOW. STATES SHE IS STILL HAVING SOME LEAKING WHEN SHE WAITS TO LONG BUT USUALLY BECAUSE SHE IS BUSIER THAN NORMAL AND DOESN'T HAVE THE TIME TO GO TO THE BATHROOM. PATIENT REPORTS SHE PLANS TO PURCHASE AND USE THE RECOMMENDED HOME K-FIT PF E-STIM UNIT ONCE SHE RELOCATES. MOVING TO [place] NEXT WEEK. % Improvement: 55 Objective/Function: PATIENT WAS SEEN TODAY FOR RE-ASSESSMENT OF PROGRESS TOWARD THE SET PT GOALS AND THE NEED FOR FURTHER PHYSICAL THERAPY VS READINESS FOR DISCHARGE. PATIENT IS. IMPROVING SLOWLY. REPORTING MUCH LESS LEAKING. PATIENT COMMUNICATED A GOOD UNDERSTANDING OF ALL INSTRUCTIONS AFTER GIVEN TODAY. FURTHER PT RECOMMENDED NEEDED WHEN PATIENT RE-LOCATES TO [place]. UPON INTERNAL MANUAL VAGINAL TESTING TODAY PATIENT DEMO'S IMPROVED PF STRENGTH TO 3/5. ABLE TO CONTRACT PF X 10 SEC X 3 REPS BEFORE STRENGTH diminishes. SHE IS INDPE WITH A HEP. FUNCTIONAL SCREEN: Incontinence Impact Questionnaire Score: 1. Urogenital Distress Inventory Score: 3 Goal 1:: DECREASE URINARY LEAKAGE EPISODES TO ONE OR LESS PER DAY Goal 2:: PATIENT WILL SUCCESSFULLY DELAY VOIDING FOR 60 MINUTES WHEN URGENCY OCCURS Goal 3:: PATIENT WILL HAVE INCREASED PELVIC FLOOR MUSCLE STRENGTH GRADE TO 5/5 Goal 4:: PATIENT WILL DEMONSTRATE 10 CONSISTENT AND CONSECUTIVE 10 SECOND PELVIC FLOOR MUSCLE CONTRACTIONS TO DEMONSTRATE IMPROVED PELVIC FLOOR ENDURANCE. Goal 5:: DEVELOP HEALTHY FLUID INTAKE HABITS WITH FLUID INTAKE OF ? BODY WEIGHT IN OUNCES PER DAY AND 2/3 BEING WATER. NORMALIZE VOIDING FREQUENCEY TO EVERY 3- 4 HOURS. Goal 6:: PATIENT WILL BE INDEP WITH A HEP/HOME INSTRUCTIONS FOR CONTINUED IMPROVEMENT ONCE FORMAL PHYSICAL THERAPY CONCLUDES. Plan: D/C DUE TO MOVING TO [place]. If there are questions or concerns regarding this patient's physical therapy, please feel free to call me at [phone]. Thank you for the referral of this patient. Sincerely, Janessa Plummer PT, Cert MDT
== END 2022-10-24 19:00 | disposition home or self-care (01) ==
LOC: PT 09:00
PROVIDERS: PCP Family Medicine; Referring Provider Obstetrics & Gynecology; Visit Provider Obstetrics & Gynecology
DX: M62.89 Other specified disorders of muscle (principal)
CPT/HCPCS: 97140; 97162; 97164; 97530